=== PATIENT | male | born 1970 | race Caucasian/White ===

== ENCOUNTER 2018-01-26 14:30 | Inpatient (IN) | payer MEDICARE, MEDICAID ==
[~2018-01-26] VITALS: Ht 157.5 cm; Wt 65.0 kg
[2018-01-26 15:03] LABS: APPEARANCE CLEAR (CLEAR); BILIRUBIN NEGATIVE (NEGATIVE); COLOR YELLOW (YELLOW); GLUCOSE NEGATIVE (NEGATIVE); KETONE NEGATIVE (NEGATIVE); NITRITE NEGATIVE (NEGATIVE); PROTEIN NEGATIVE (NEGATIVE); UROBILINOGEN NORMAL (NORMAL)
[2018-01-26 15:15] LABS: BASOPHILS 0.2 % (0-2); EOSINOPHILS 0.8 % (0-7); HEMOGLOBIN 12.4 g/dL (13.5-17.5); IMMATURE GRANULOCYTES 0.2 % (0-5); LYMPHOCYTES 17.1 % (15-50); MCH 33.6 pg (26.0-34.0); MCHC 34.4 g/dL (31.0-37.0); MCV 97.6 fL (80.0-100.0); MEAN PLATELET VOLUME 9.7 fL (7.4-10.4); MONOCYTES 11.9 % (2-11); NEUTROPHILS 69.8 % (40-80); PLATELET COUNT 236 10x3/uL (130-400); RBC 3.69 10x6/uL (4.20-6.10); RDW 12.3 % (11.5-14.5)
[2018-01-26 15:51] LABS: ALBUMIN 3.4 g/dL (3.4-5.0); BILIRUBIN - TOTAL 0.26 mg/dL (0.2-1.3); CALCIUM 8.9 mg/dL (8.5-10.1); CREATININE - SERUM 1.4 mg/dL (0.6-1.3); PROTEIN - SERUM 6.5 g/dL (6.4-8.2)
[2018-01-26 22:40] VITALS: BP 125/73
[2018-01-27 03:16] VITALS: BP 125/73; BMI 26.2
[2018-01-27] MEDS ORDERED: IBUPROFEN800 MG PO (03:22)
[2018-01-27 03:53] VITALS: BP 115/61
[2018-01-27 05:53] LABS: BASOPHILS 0.2 % (0-2); EOSINOPHILS 1.1 % (0-7); HEMATOCRIT 36.8 % (42.0-54.0); HEMOGLOBIN 12.8 g/dL (13.5-17.5); IMMATURE GRANULOCYTES 0.2 % (0-5); MCH 33.8 pg (26.0-34.0); MCHC 34.8 g/dL (31.0-37.0); MCV 97.1 fL (80.0-100.0); MONOCYTES 13.7 % (2-11); NEUTROPHILS 61.8 % (40-80); PLATELET COUNT 239 10x3/uL (130-400); RBC 3.79 10x6/uL (4.20-6.10); RDW 12.6 % (11.5-14.5); WBC 5.6 10x3/uL (4.8-10.8)
[2018-01-27 06:05] LABS: CALC OSMOLALITY 282 mosm/kg (275-300); CARBON DIOXIDE 27.6 mmol/L (21.0-32.0); CHLORIDE - SERUM 104 mmol/L (98-107); GLUCOSE 112 mg/dL (74-106); POTASSIUM - SERUM 3.9 mmol/L (3.5-5.1); SODIUM 141 mmol/L (136-145); UREA NITROGEN 14 mg/dL (7-18)
[2018-01-27 06:08] LABS: CREATININE - SERUM 0.9 mg/dL (0.6-1.3); eGFR NON AFRICAN AMERICAN > 90 mL/min (90-120)
[2018-01-27 08:23] VITALS: BP 120/67
[2018-01-27 12:09] VITALS: BP 120/72
[2018-01-27 14:41] VITALS: Ht 157.5 cm; Wt 65.0 kg
[2018-01-27 16:49] VITALS: BP 125/71
[2018-01-27 20:20] VITALS: BP 117/72
[2018-01-28 01:02] VITALS: BP 124/74
[2018-01-28 04:22] VITALS: BP 125/72
[2018-01-28 07:00] VITALS: BP 115/71
[2018-01-28 07:15] LABS: BASOPHILS 0.3 % (0-2); EOSINOPHILS 2.1 % (0-7); HEMATOCRIT 37.6 % (42.0-54.0); IMMATURE GRANULOCYTES 0.3 % (0-5); MCH 33.5 pg (26.0-34.0); MCHC 34.6 g/dL (31.0-37.0); MCV 96.9 fL (80.0-100.0); MEAN PLATELET VOLUME 9.7 fL (7.4-10.4); NEUTROPHILS 61.3 % (40-80); PLATELET COUNT 267 10x3/uL (130-400); RBC 3.88 10x6/uL (4.20-6.10); RDW 12.4 % (11.5-14.5); WBC 6.3 10x3/uL (4.8-10.8)
[2018-01-28 07:43] LABS: CALC OSMOLALITY 281 mosm/kg (275-300); CALCIUM 9.1 mg/dL (8.5-10.1); CARBON DIOXIDE 28.1 mmol/L (21.0-32.0); CHLORIDE - SERUM 104 mmol/L (98-107); CREATININE - SERUM 0.8 mg/dL (0.6-1.3); GLUCOSE 108 mg/dL (74-106); POTASSIUM - SERUM 4.1 mmol/L (3.5-5.1); SODIUM 140 mmol/L (136-145); UREA NITROGEN 17 mg/dL (7-18); VANCOMYCIN - TROUGH 6.9 ug/mL (10.0-20.0); eGFR NON AFRICAN AMERICAN > 90 mL/min (90-120)
[2018-01-28 12:25] VITALS: BP 124/67
[2018-01-28 17:41] VITALS: BP 110/68
[2018-01-28 20:53] VITALS: BP 125/67
[2018-01-29 01:13] VITALS: BP 134/68
[2018-01-29 04:45] VITALS: BP 101/54
[2018-01-29 05:34] LABS: BASOPHILS 0.5 % (0-2); EOSINOPHILS 3.1 % (0-7); HEMATOCRIT 38.9 % (42.0-54.0); HEMOGLOBIN 13.4 g/dL (13.5-17.5); IMMATURE GRANULOCYTES 0.3 % (0-5); LYMPHOCYTES 26.5 % (15-50); MCH 33.6 pg (26.0-34.0); MCHC 34.4 g/dL (31.0-37.0); MCV 97.5 fL (80.0-100.0); MEAN PLATELET VOLUME 9.6 fL (7.4-10.4); MONOCYTES 8.3 % (2-11); NEUTROPHILS 61.3 % (40-80); PLATELET COUNT 283 10x3/uL (130-400); RBC 3.99 10x6/uL (4.20-6.10); RDW 12.3 % (11.5-14.5); WBC 6.1 10x3/uL (4.8-10.8)
[2018-01-29 05:50] LABS: CALC OSMOLALITY 282 mosm/kg (275-300); CHLORIDE - SERUM 105 mmol/L (98-107); CREATININE - SERUM 0.9 mg/dL (0.6-1.3); GLUCOSE 112 mg/dL (74-106); SODIUM 141 mmol/L (136-145); UREA NITROGEN 15 mg/dL (7-18); eGFR NON AFRICAN AMERICAN > 90 mL/min (90-120)
[2018-01-29] MEDS ORDERED: SILVADENE CREAM50 GM TOPICAL (07:27)
[2018-01-29 07:43] VITALS: BP 120/73
== END 2018-01-29 11:23 | disposition home or self-care (01) | DRG 918 ==
LOC: D.ER 14:30 → D.MS 17:50 → D.EDHOLD 17:50 → D.MS 18:55
PROVIDERS: Family Medicine
DX: T54.91XA Toxic effect of unspecified corrosive substance, accidental (unintentional), initial encounter (principal); L03.116 Cellulitis of left lower limb; T25.422A Corrosion of unspecified degree of left foot, initial encounter; T25.421A Corrosion of unspecified degree of right foot, initial encounter; R20.8 Other disturbances of skin sensation; F17.200 Nicotine dependence, unspecified, uncomplicated; J44.9 Chronic obstructive pulmonary disease, unspecified; K75.9 Inflammatory liver disease, unspecified; F41.9 Anxiety disorder, unspecified; S91.302A Unspecified open wound, left foot, initial encounter; S91.301A Unspecified open wound, right foot, initial encounter

== ENCOUNTER 2019-03-16 14:25 | Emergency (ER) | payer MEDICARE, MEDICAID ==
[~2019-03-16] VITALS: Ht 157.5 cm; Wt 63.6 kg
[~2019-03-16 14:25] MED LIST: IBUPROFEN800 MG PO; SILVADENE CREAM50 GM TOPICAL
[2019-03-16 14:49] VITALS: BP 124/73; Ht 157.5 cm; Wt 63.6 kg
[2019-03-16 15:27] LABS: BASOPHILS 0.3 % (0-2); EOSINOPHILS 1.6 % (0-7); HEMATOCRIT 38.9 % (42.0-54.0); HEMOGLOBIN 13.5 g/dL (13.5-17.5); IMMATURE GRANULOCYTES 0.2 % (0-5); LYMPHOCYTES 33.5 % (15-50); MCH 34.1 pg (26.0-34.0); MCHC 34.7 g/dL (31.0-37.0); MCV 98.2 fL (80.0-100.0); MEAN PLATELET VOLUME 9.6 fL (7.4-10.4); MONOCYTES 8.2 % (2-11); NEUTROPHILS 56.2 % (40-80); PLATELET COUNT 228 10x3/uL (130-400); RBC 3.96 10x6/uL (4.20-6.10); RDW 11.8 % (11.5-14.5); WBC 6.3 10x3/uL (4.8-10.8)
[2019-03-16 15:43] LABS: ALBUMIN 4.1 g/dL (3.4-5.0); ALKALINE PHOSPHATASE 50 U/L (46-116); ALT (SGPT) 31 U/L (10-68); CALC OSMOLALITY 281 mosm/kg (275-300); CALCIUM 8.9 mg/dL (8.5-10.1); CARBON DIOXIDE 29.9 mmol/L (21.0-32.0); CHLORIDE - SERUM 103 mmol/L (98-107); CREATININE - SERUM 0.9 mg/dL (0.6-1.3); GLUCOSE 79 mg/dL (74-106); POTASSIUM - SERUM 3.8 mmol/L (3.5-5.1); PROTEIN - SERUM 7.3 g/dL (6.4-8.2); SODIUM 141 mmol/L (136-145); UREA NITROGEN 19 mg/dL (7-18); eGFR NON AFRICAN AMERICAN > 90 mL/min (90-120)
[2019-03-16 15:46] LABS: APTT 25.3 SECONDS (22.8-39.4); INR 0.99 (0.85-1.17); PROTIME 12.6 SECONDS (11.6-15.0)
== END 2019-03-16 16:36 | disposition home or self-care (01) ==
LOC: D.ER 14:25
PROVIDERS: Family Medicine
DX: K92.2 Gastrointestinal hemorrhage, unspecified (principal)

== ENCOUNTER 2019-03-25 09:20 | Inpatient (IN) | payer MEDICARE, MEDICAID ==
[2019-03-25] VITALS (8 sets, daily range): BP systolic 111–149; BP diastolic 73–95; BMI 26.4
[~2019-03-25] VITALS: Ht 157.5 cm; Wt 71.4 kg
--- NOTE | ~2019-03-25 | HEMODYNAMI ---
PATIENT:JULES GATICA MEDICAL RECORD: [id number] : [birth year] LOCATION:[facility] D.2118 ADMISSION DATE: 03/25/19 Generatedon:03/26/201913:27 Patient name: JULES GATICA Patient #: [id number] SSN: : 1970 Date of study: 03/26/2019 Page: Of Hemodynamic Procedure Report Patient Data Patient Demographics Procedure consent was obtained First Name: JULES Gender: Male Last Name: GAVI : 1970 [facility] Initial: STEVEN Age: 49 year(s) Patient #: [id number] Race: Unknown Additional ID: [id number] Contact details Address: [address] [place] [address] State: [place] City: [place] Zip code: [address] Past Medical History Allergies Allergen Reaction Date Comments Reported Other allergy 03/26/2019 iodine Admission Admission Data Admission Date: 03/25/2019 Admission Time: 14:07 Room #: D.2118 Height (in.): 61.81 BSA: 1.67 (m2) Height (cm.): 157 BMI: 26.78 (kg/m2) Weight (lbs.): 145.51 Weight (kg.): 66 Lab Results Lab Result Date: 03/26/2019 Lab Result Time: 0:00 Biochemistry Name Units Result Min Max BUN mg/dl 12 --(-*--)-- 7 18 Creatinine mg/dl 1 --(--*-)-- 0.6 1.3 Troponin l ng/ml 0.113 --(----)-* 0 0.06 CBC Name Units Result Min Max Hemoglobin g/dl 15.2 --(-*--)-- 13.5 17.5 Coagulation Name Units Result Min Max INR units 0.92 --(*---)-- 0.85 1.17 PT sec 11.9 --(*---)-- 11.6 15 Procedure Procedure Types Cath Procedure Diagnostic Procedure C [facility] w/Coronaries Procedure Description Procedure Date Procedure Date: 03/26/2019 Procedure Start Time: 13:20 Procedure End Time: 13:26 Procedure Staff Name Function Christoph Kim MD Performing Physician Casi Carter RN Nurse Mago Simon RT Scrub Flora Shearer RT Monitor Procedure Data Cath Procedure Fluoroscopy Diagnostic fluoroscopy Total fluoroscopy Time: 1.2 time: 1.2 min min Diagnostic fluoroscopy Total fluoroscopy dose: 199 dose: 199 mGy mGy Contrast Material Contrast Material Type Amount (ml) Isovue 300 37 Entry Location Entry Primary Successful Side Size Upsize Upsize Entry Closure Carbajal ccessful Closure Location (Fr) 1 (Fr) 2 (Fr) Remarks Device Remarks Radial Right 6 Fr Mechanical artery Short Compression Estimated blood loss: 10 ml Diagnostic catheters Device Type Used For End Catheter Placement DIAGNOSTIC [place] 110cm 5 Procedure Fr catheter ([id number]) Procedure Complications No complications Procedure Medications Medication Administration Route Dosage 0.9% NaCl I.V. 100 ml/hr Oxygen etCO2 Nasal cannula 2 l/min Lidocaine 2% added to field 20 Heparin Flush Bag added to field 2 bags (1000units/500ml NS) Radial Cocktail added to field 1 syringe (Verapamil 2mg/Nitro 400mcg/Heparin 1500units) Versed I.V. 2 mg Fentanyl I.V. 50 mcg Versed I.V. 2 mg Fentanyl I.V. 50 mcg Hemodynamics Rest BSA: 1.67 (m2) HGB: 15.2 (g/dl) O2 Consumption: Estimated: 201.2 (ml/min) O2 Con sumption indexed: Estimated:120.48 (ml/min/m) Heart Rate: 72 (bpm) Snapshots Pre Cath Intra NCS Post Cath Vital Signs Time Heart Resp SPO2 etCO2 NIBP Rhythm Pain Sedation Rate (ipm) (%) (mmHg) (mmHg) Status Level (bpm) 12:55:35 71 17 99 24 114/74(95) NSR 0 (11) 10(A) , No pain 12:59:42 74 14 100 31.4 111/70(83) NSR 0 (11) 10(A) , No pain 13:03:52 75 16 98 29 103/63(83) NSR 0 (11) 10(A) , No pain 13:07:54 71 18 97 29 107/74(84) NSR 0 (11) 10(A) , No pain 13:12:00 68 18 97 19.4 105/63(77) NSR 0 (11) 10(A) , No pain 13:16:03 77 16 96 26 111/70(82) NSR 0 (11) 10(A) , No pain 13:20:09 73 17 96 23.2 111/68(85) NSR 0 (11) 10(A) , No pain 13:24:17 73 19 95 36.7 93/57(76) NSR 0 (11) 10(A) , No pain Medications Time Medication Route Dose Verified Delivered Reason Notes E ffectiveness by by 12:57:31 0.9% NaCl I.V. 100 Christoph Casi used for ml/hr Julio Carter dope heater 12:57:39 Oxygen etCO2 2 l/min Christoph Casi used for Nasal Julio Carter procedure cannula RN 12:57:44 Lidocaine 2% added 20ml Christoph Christoph for local to vial Julio Kim MD anesthetic field 12:57:48 Heparin Flush added 2 bags Christoph Christoph used for Bag to Julio Kim MD procedure (1000units/500ml field NS) 12:57:53 Radial Cocktail added 1 Christoph Christoph used for (Verapamil to syringe Julio Kim MD procedure 2mg/Nitro field 400mcg/Heparin 1500units) 13:18:25 Versed I.V. 2 mg Christoph Casi for Julio Carter sedation RN 13:18:31 Fentanyl I.V. 50 mcg Christoph Casi for Julio Carter sedation RN 13:23:09 Versed I.V. 2 mg Christoph Casi for Julio Carter sedation RN 13:23:17 Fentanyl I.V. 50 mcg Christoph Casi for Julio Carter sedation community center worker Log Time Note 12:41:41 Diagnostic Cath Status : Elective 12:42:45 Flora Shearer RT(R) sent for patient. Start room use. 12:42:46 Time tracking: Regular hours (M-F 7:00 - 5:00) 12:42:50 Plan of Care:Hemodynamics will remain stable., Cardiac rhythm will remain stable., Comfort level will be maintained., Respiratory function will remain adequate., Patient/ family verbilizes understanding of procedure., Procedure tolerated without complication., Recovers from procedure without complications.. 12:49:56 Patient received from PCU to CCL 2 Alert and oriented. Tansferred to table in Supine position. 12:49:57 Warm blankets applied, and lacho hugger turned on for patient comfort. 12:49:58 Correct patient and procedure confirmed by team. 12:50:00 Signed procedure consent form obtained from patient. 12:50:02 ECG and BP/O2 sat monitors applied to patient. 12:50:21 H&P Date Dictated: 03/26/2019 Within 30 days and on chart.. 12:50:23 Pre-procedure instructions explained to patient. 12:50:25 Family in waiting room. 12:50:27 Patient NPO since Midnight. 12:50:46 Patient allergic to Other allergyiodine 12:50:49 Is the patient allergic to Iodine/contrast media? Yes. 12:50:50 Was the patient premedicated? Yes 12:50:53 Is patient on blood thinner?No 12:54:34 Vital chart was started 12:57:31 0.9% NaCl 100 ml/hr I.V. was administered by Casi Carter RN; used for procedure; 12:57:39 Oxygen 2 l/min etCO2 Nasal cannula was administered by Casi Carter RN; used for procedure; 12:57:44 Lidocaine 2% 20ml vial added to field was administered by Christoph Kim MD; for local anesthetic; 12:57:48 Heparin Flush Bag (1000units/500ml NS) 2 bags added to field was administered by Christoph Kim MD; used for procedure; 12:57:53 Radial Cocktail (Verapamil 2mg/Nitro 400mcg/Heparin 1500units) 1 syringe added to field was administered by Christoph Kim MD; used for procedure; 12:58:43 ACC The patient was administered the following blood thiners within the last 24 hours: None 12:58:46 Patient diabetic? No. 12:58:52 Snore? Yes 12:58:54 Sleep apnea? No 12:58:59 Airway obstruction? Yes COPD 12:59:07 Dentures? Yes intight' 12:59:12 Patient pain scale 0/10 ?. 12:59:20 IV patent on arrival in left antecubital with 0.9% NaCl at [facility]. 12:59:23 Lab results completed and on chart. 12:59:27 Right Radial & Right Groin area was prepped with chlora-prep and draped in sterile fashion 12:59:28 Alarms reviewed by R. N. 12:59:29 Sharps counted by scrub and verified by R.N. 12:59:31 Physician paged 13:01:20 Use device set Radial Dx or PCI 13:01:21 ACIST Syringe (55092) opened to sterile field. 13:01:22 Medline Cath Pack ([id number]) opened to sterile field. 13:01:22 Bag Decanter (2002S) opened to sterile field. 13:01:23 ACIST Hand Control (70336) opened to sterile field. 13:01:23 ACIST Manifold (91647) opened to sterile field. 13:01:24 Tegaderm 4 x 4 (1626W) opened to sterile field. 13:01:24 MBrace Wrist Support ([id number]) opened to sterile field. 13:01:25 NEEDLE Cook 21G 4cm Radial (V50056) opened to sterile field. 13:01:30 SHEATH 6FR RAIN (4319964) opened to sterile field. 13:04:31 Patient Height : 61.81 inches 13:04:35 Patient Weight : 145.51 lbs 13:06:00 Lab Result : Troponin l 0.113 ng/ml 13:06:00 Lab Result : Creatinine 1 mg/dl 13:06:00 Lab Result : BUN 12 mg/dl 13:06:00 Lab Result : INR 0.92 units 13:06:00 Lab Result : PT 11.9 sec 13:06:00 Lab Result : Hemoglobin 15.2 g/dl 13:06:46 Baseline sample Acquired. 13:06:51 Full Disclosure recording started 13:10:04 Zero performed for pressure channel P1 13:14:11 Physician arrived 13:17:17 --------ALL STOP TIME OUT------ 13:17:19 Final Timeout: patient, procedure, and site verified with staff and physician. All members of the team are in agreement. 13:17:21 Right groin site verified by team. 13:17:25 Right Radial site verified by team. 13:17:30 Fire Safety Assessment: A--An alcohol-based skin anteseptic being used preoperatively., C--Open oxygen or nitrous oxide is being used., D--An ESU, laser, or fiber-optic light is being used. 13:17:51 1) 90+ Normal kidney functon but urine findings or structural abnormalities or genetic trait point to kidney disease. 13:17:58 Sedation plan: IV Moderate Sedation Medication:Versed, Fentanyl 13:18:25 Versed 2 mg I.V. was administered by Casi Carter RN; for sedation; :18:31 Fentanyl 50 mcg I.V. was administered by Casi Carter RN; for sedation; 13:20:03 Procedure started. 13:20:15 Local anesthetic to right radial artery with Lidocaine 2% by Christoph Kim MD.INITIAL ACCESS ONLY 13::28 A 6 Fr Short sheath was inserted into the Right Radial artery 13::52 A DIAGNOSTIC [place] 110cm 5 Fr catheter ([id number]) was advanced over the wire and used for Procedure. 13:22:05 LV angiography performed. 13:22:50 EF : 60 % 13:23:00 LCA angiography performed. 13:23:09 Versed 2 mg I.V. was administered by Casi Carter RN; for sedation; 13:23:17 Fentanyl 50 mcg I.V. was administered by Casi Carter RN; for sedation; 13:23:36 RCA angiography performed. 13:24:37 TR BAND Standard ([id number]) opened to sterile field. 13:24:41 Catheter removed. 13:25:00 Sheath removed intact; hemostasis achieved with Mechanical Compression to the Right Radial artery. 13:25:04 Procedure ended.(Physican Out) 13:25:17 Fluoroscopy time 01.20 minutes. 13:25:22 Fluoroscopy dose: 199 mGy 13:25:22 Flurop Dose total: 199 13:25:26 Contrast amount:Isovue 300 37ml. 13:25:28 Sharps counted by scrub and verified by R.N. 13:25:31 TR band inflated with 10cc of air. 13:25:32 Insertion/operative site no bleeding no hematoma. 13:25:34 Post Procedure Pulses reassessed and unchanged 13:25:43 Post-procedure physical assessment completed. ASA score P 2 - A patient with mild systemic disease as per Christoph Kim MD. 13:25:45 Post procedure rhythm: unchanged. 13:25:48 Estimated blood loss: 10 ml 13:25:50 Post procedure instruction explained to patient.Patient verbalizes understanding. 13:26:07 Procedure and supply charges have been captured, reviewed, submitted and are correct. 13:26:24 Procedure Complication : No complications 13:26:27 Vital chart was stopped 13:26:27 See physician's report for complete and final results. 13:26:29 Report given to Pre/Post Procedure Room. 13:26:42 Patient transfered to Pre/Post Procedure Room with Bed. 13:26:48 Procedure ended. 13:26:48 Full Disclosure recording stopped 13:26:51 End room use (Document Last) Device Usage Item Name Manufacture Quantity Catalog Hospital Part Current Minima l Lot# / Number Charge Number Stock Stock Serial# Code ACIST Acist 1 13589 320367 814677 237094 20 Syringe Medical (52103) Systems Inc Medline Medline 1 [id number] 813960 68515 733589 5 Cath Pack ([id number]) Bag Microtek 1 908695 86666 099612 5 Decanter Medical Inc. () ACIST Hand Acist 1 83741 916968 716704 940171 5 Control Medical (12949) Systems Inc ACIST Acist 1 69723 780882 738257 772997 5 Manifold Medical (73069) Systems Inc Tegaderm 4 3M 1 1626W 237180 434859 696328 5 x 4 (1626W) MBrace Advanced 1 140-0250-00 355988 05794 116892 5 Wrist Vascular Support Dynamics ([id number]) NEEDLE Cook Cook Medical 1 [id number] 351930 754919 719303 5 21G 4cm Radial (P73446) SHEATH 6FR Cardinal 1 8111499 549441 1862873 998110 5 [facility] (6220992) DIAGNOSTIC Terumo 1 40-1759 725680 381911 709978 5 [place] 110cm 5 Fr catheter (441960) TR BAND Terumo 1 PCU44-RVS 548870 045721 022820 40 Standard ([id number]) Signature Audit [place] Stage Time Signature Unsigned Intra-Procedure 03/26/2019 Flora Shearer 1:27:41 PM RT(R) Signatures Performing Physician : Signature : Christoph Tauth MD Date : Time : Nurse : Casi Raul RN Signature : Date : Time : Monitor : Flora Manfred Signature : RT Date : Time : [place] [address] [place] [address]
[2019-03-25] MEDS ORDERED: [UNRECOGNIZED DRUG - REMARK] (09:25)
[2019-03-25] MEDS ORDERED: [UNRECOGNIZED DRUG - REMARK] (09:26)
[2019-03-25 09:46] LABS: BASOPHILS 0.3 % (0-2); EOSINOPHILS 0.9 % (0-7); HEMOGLOBIN 15.2 g/dL (13.5-17.5); IMMATURE GRANULOCYTES 0.2 % (0-5); LYMPHOCYTES 34.2 % (15-50); MCH 34.5 pg (26.0-34.0); MCHC 35.3 g/dL (31.0-37.0); MCV 97.7 fL (80.0-100.0); MEAN PLATELET VOLUME 9.4 fL (7.4-10.4); NEUTROPHILS 52.4 % (40-80); PLATELET COUNT 193 10x3/uL (130-400); WBC 5.8 10x3/uL (4.8-10.8)
[2019-03-25 09:47] LABS: APPEARANCE CLEAR (CLEAR); BILIRUBIN NEGATIVE (NEGATIVE); COLOR YELLOW (YELLOW); GLUCOSE NEGATIVE (NEGATIVE); KETONE NEGATIVE (NEGATIVE); NITRITE NEGATIVE (NEGATIVE); PROTEIN NEGATIVE (NEGATIVE); SPECIFIC GRAVITY 1.015 (1.005-1.020); UROBILINOGEN NORMAL (NORMAL)
--- NOTE | 2019-03-25 09:51 | NUR ---
CLEAN CATCH URINE COLLECTED ET SENT TO LAB.
[2019-03-25 10:01] LABS: ALBUMIN 4.2 g/dL (3.4-5.0); ALKALINE PHOSPHATASE 73 U/L (46-116); ALT (SGPT) 27 U/L (10-68); BILIRUBIN - TOTAL 0.66 mg/dL (0.2-1.3); CALC OSMOLALITY 274 mosm/kg (275-300); CARBON DIOXIDE 26.9 mmol/L (21.0-32.0); CHLORIDE - SERUM 101 mmol/L (98-107); GLUCOSE 109 mg/dL (74-106); POTASSIUM - SERUM 3.9 mmol/L (3.5-5.1); PROTEIN - SERUM 7.7 g/dL (6.4-8.2); SODIUM 137 mmol/L (136-145); UREA NITROGEN 12 mg/dL (7-18); eGFR NON AFRICAN AMERICAN 84 mL/min (90-120)
[2019-03-25 10:13] LABS: AMYLASE - SERUM 28 U/L (25-115); LIPASE 95 U/L (73-393)
[2019-03-25 10:17] LABS: TROPONIN-I 0.141 ng/mL (0.000-0.060)
[2019-03-25 11:01] LABS: APTT 25.9 SECONDS (22.8-39.4); INR 0.92 (0.85-1.17); PROTIME 11.9 SECONDS (11.6-15.0)
[2019-03-25 11:12] LABS: CKMB 1.1 U/L (0.0-3.6); CREATINE KINASE 70 UL (21-232)
--- NOTE | 2019-03-25 11:27 | NUR ---
ART CLASS MODEL AT
--- NOTE | 2019-03-25 12:06 | NUR ---
TO CT VIA WC WITH FORENSIC SCIENTIST
[2019-03-25 14:25] LABS: CREATINE KINASE 61 UL (21-232)
[2019-03-25 14:26] LABS: TROPONIN-I 0.133 ng/mL (0.000-0.060)
--- NOTE | 2019-03-25 14:40 | NUR ---
REPORT CALLED TO SHAYY HILL BY SBAR FORMAT
--- NOTE | 2019-03-25 14:49 | MORECARE ---
CASE MANAGEMENT DISCHARGE SUMMARY PATIENT: JULES GATICA UNIT: [id number] ADM DATE: 03/25/19 AGE: 49 : [birth year] SEX: M ROOM/BED: D.3508 AUTHOR: AMBIKA,DOC PHYSICIAN: REFERRING PHYSICIAN: EMILY GUTIÉRREZ MD DATE OF SERVICE: 03/25/19 Discharge Plan Patient Name: JULES GATICA Facility: [facility]:[place] : 1970 Planned Disposition: Anticipated Discharge Date: 03/27/19 Discharge Date: Expected LOS: 2 Initial Reviewer: [email or web address] Initial Review Date: 03/25/2019 Generated: 03/25/19 3:48 pm DCP- Discharge Planning Updated by [email or web address]: Jennifer Caldwell on 03/25/19 1:[address] Patient Name: JULES GATICA Admission Status: ER Accout number: [id number] Admission Date: 03-25-2019 : 1970 Admission Diagnosis: Attending: EMILY GUTIÉRREZ Current LOS: 1 Anticipated DC Date: 03-27-2019 Planned Disposition: Primary Insurance: [facility] [employer] [employer]UTIONS Discharge Planning Comments: CM met with patient to complete initial dc planning assessment. CM educated patient on the CM role and verbal consent given by patient to complete assessment. CM verified patient's address, phone number, and emergency contact phone numbers. Patient lives at home with his significant other. At discharge patient plans to return home and feels this is a safe discharge. CM discussed availability of home health, rehab services, and medical equipment. Patient denied known discharge needs at this time. Patient reports his sister in law will transport him home at time of discharge. CM will continue to follow and will assist as needed with dc plans/needs. Pyrotechnist: Jennifer Caldwell RN, [facility] DCPIA - Discharge Planning Initial Assessment Updated by [email or web address]: Jennifer Caldwell on 03/25/19 2:44 pm * Is the patient Alert and Oriented? Yes * How many steps to enter\exit or inside your home? * PCP Dr. Urban * Pharmacy [facility] * Preadmission Environment Home with Family * ADLs Independent * Equipment None * List name and contact numbers for known caregivers / representatives who currently or will assist patient after discharge: Marta Gaitan - sister - [phone] Spencer Villa - brother - [phone] * Verbal permission to speak to the caregivers and representatives has been obtained from the patient. Yes * Community resources currently utilized None * Additional services required to return to the preadmission environment? No * Can the patient safely return to the preadmission environment? Yes * Has this patient been hospitalized within the prior 30 days at any hospital? No Patient Name: JULES GATICA Page [id number] at 1449 All edits/amendments must be made on the electronic document DICTATION DATE: 03/25/191447 MARKETING OPERATIONS SPECIALIST: HERBERT 03/25/191447 RPT#: [id number] DC DATE: STATUS: ADM IN [facility] [address] [place] [address] END OF REPORT
--- NOTE | 2019-03-25 15:03 | NUR ---
[facility] IN[facility]USION STOPPED @ 1503
--- NOTE | 2019-03-25 15:03 | NUR ---
TRANSPORTED TO ROOM #2118 VIA W/C [facility]
--- NOTE | 2019-03-25 15:12 | NUR ---
TRANSFER FROM ICU BY W/C. OREINTED TO ROOM. CALL LIGHT IN REACH. WILL CONT. PLAN OF CARE.
[2019-03-25] MEDS ORDERED: CARAFATE1 G PO (15:16)
[2019-03-25] MEDS ORDERED: NEXIUM40 MG PO (15:17)
--- NOTE | 2019-03-25 15:47 | NUR ---
CONSENTS SIGNED FOR [facility].
[2019-03-25 20:09] LABS: CKMB 0.8 U/L (0.0-3.6); CREATINE KINASE 56 UL (21-232); TROPONIN-I 0.056 ng/mL (0.000-0.060)
[2019-03-26] VITALS: BP 115/75
[2019-03-26 02:19] LABS: CKMB 0.8 U/L (0.0-3.6); CREATINE KINASE 55 UL (21-232); TROPONIN-I 0.043 ng/mL (0.000-0.060)
[2019-03-26 04:00] VITALS: BP 117/78
[2019-03-26 06:02] LABS: BASOPHILS 0.2 % (0-2); EOSINOPHILS 0.6 % (0-7); HEMATOCRIT 39.4 % (42.0-54.0); HEMOGLOBIN 13.8 g/dL (13.5-17.5); IMMATURE GRANULOCYTES 0.2 % (0-5); LYMPHOCYTES 33.5 % (15-50); MCH 33.6 pg (26.0-34.0); MCV 95.9 fL (80.0-100.0); MEAN PLATELET VOLUME 9.7 fL (7.4-10.4); MONOCYTES 13.2 % (2-11); NEUTROPHILS 52.3 % (40-80); PLATELET COUNT 198 10x3/uL (130-400); RBC 4.11 10x6/uL (4.20-6.10)
[2019-03-26 06:19] LABS: CALC OSMOLALITY 277 mosm/kg (275-300); CALCIUM 8.5 mg/dL (8.5-10.1); CARBON DIOXIDE 28.4 mmol/L (21.0-32.0); CHLORIDE - SERUM 103 mmol/L (98-107); CREATININE - SERUM 0.9 mg/dL (0.6-1.3); GLUCOSE 106 mg/dL (74-106); MAGNESIUM - SERUM 1.9 mg/dL (1.8-2.4); PHOSPHOROUS 3.6 mg/dL (2.5-4.9); POTASSIUM - SERUM 3.6 mmol/L (3.5-5.1); SODIUM 140 mmol/L (136-145); UREA NITROGEN 10 mg/dL (7-18); eGFR NON AFRICAN AMERICAN > 90 mL/min (90-120)
[2019-03-26 08:22] VITALS: BP 108/77
[2019-03-26 12:29] VITALS: Ht 157.5 cm; Wt 71.4 kg
--- NOTE | 2019-03-26 12:52 | NUR ---
PRE-OPS GIVEN. TO INCLUSION MANAGER BY BED.
--- NOTE | 2019-03-26 13:51 | NUR ---
BACK FROM COMPUTER NETWORKER. VS WNL. RIGHT WRIST STABLE WITH TR BAND INTACT. WILL MONITOR.
--- NOTE | 2019-03-26 16:38 | NUR ---
TR BAND DCD WITHOUT BLEEDING OR HEMATOMA NOTED.
[2019-03-26 17:31] VITALS: BP 98/56
--- NOTE | 2019-03-26 19:20 | NUR ---
RESUMING PATIENT CARE. PATIENTIS ALERT AND ORIENTED. RESPIRATINS ARE EVEN AND UNLABORED. NO S/S OF DISTRESS. NO C/O PAIN. NEEDS MET. CALL LIGHT WITHIN REACH. WILL CPOC.
[2019-03-26 20:00] VITALS: BP 101/65
[2019-03-27] VITALS (8 sets, daily range): BP systolic 101–117; BP diastolic 58–76
[2019-03-27 05:31] LABS: BASOPHILS 0.3 % (0-2); EOSINOPHILS 0.9 % (0-7); HEMATOCRIT 37.4 % (42.0-54.0); HEMOGLOBIN 12.8 g/dL (13.5-17.5); IMMATURE GRANULOCYTES 0.2 % (0-5); MCH 33.5 pg (26.0-34.0); MCHC 34.2 g/dL (31.0-37.0); MEAN PLATELET VOLUME 9.8 fL (7.4-10.4); MONOCYTES 8.2 % (2-11); NEUTROPHILS 55.4 % (40-80); PLATELET COUNT 195 10x3/uL (130-400); RBC 3.82 10x6/uL (4.20-6.10); RDW 12.3 % (11.5-14.5)
[2019-03-27 05:36] LABS: MCV 97.9 fL (80.0-100.0); WBC 6.5 10x3/uL (4.8-10.8)
[2019-03-27 05:43] LABS: CALC OSMOLALITY 286 mosm/kg (275-300); CALCIUM 8.2 mg/dL (8.5-10.1); CARBON DIOXIDE 28.9 mmol/L (21.0-32.0); CHLORIDE - SERUM 107 mmol/L (98-107); GLUCOSE 96 mg/dL (74-106); MAGNESIUM - SERUM 2.1 mg/dL (1.8-2.4); PHOSPHOROUS 3.5 mg/dL (2.5-4.9); POTASSIUM - SERUM 3.5 mmol/L (3.5-5.1); SODIUM 144 mmol/L (136-145); eGFR NON AFRICAN AMERICAN 84 mL/min (90-120)
[2019-03-27 05:45] LABS: UREA NITROGEN 13 mg/dL (7-18)
--- NOTE | 2019-03-27 08:09 | NUR ---
TELEMETRY SR. UP AMBULATING HALLWAY. GAIT STEADY. WILL CONT. PLAN OF CARE.
--- NOTE | 2019-03-27 12:58 | NUR ---
IV STARTED BY LUCY RYDER WITH 22 GAUGE CATH BY LUCY RYDER. URINE SPECIMEN COLLECTED AND TAKEN TO LAB. WILL MONITOR.
--- NOTE | 2019-03-27 13:43 | NUR ---
ORTHOSTATIC B/P 101/58 72 LYING, 101/68 74 SITTING, AND 109/67 73 STANDING. WILL MONITOR.
[2019-03-27 14:16] LABS: UDS - AMPHET NEGATIVE QUAL (NEGATIVE); UDS - BARB NEGATIVE QUAL (NEGATIVE); UDS - BENZO POSITIVE QUAL (NEGATIVE); UDS - COCAINE NEGATIVE QUAL (NEGATIVE); UDS - OPIATE NEGATIVE QUAL (NEGATIVE); UDS - PCP NEGATIVE QUAL (NEGATIVE); UDS - THC POSITIVE QUAL (NEGATIVE)
--- NOTE | 2019-03-27 16:51 | CN ---
PATIENT NAME:JULES MILLER MEDICAL RECORD: [id number] : 68 LOCATION:D. D.2118 ADMIT DATE: 03/25/19 ACCOUNT: [id number] CONSULTING PHYSICIAN: CHARLOTTE SPENCE MD REFERRING PHYSICIAN: EMILY GUTIÉRREZ MD DATE OF CONSULTATION: 03/25/2019 DIAGNOSES: 1. Non-Q-wave myocardial infarction. 2. Cardiomyopathy. 3. Coronary artery disease. 4. Family history of coronary artery disease. 5. Smoking history. 6. Gastroesophageal reflux disease. 7. Recent gastrointestinal bleed. HISTORY OF PRESENT ILLNESS: Mr. Miller presents with epigastric and lower chest discomfort. He thought that this was secondary to his GERD and gastric situation. He presented last week with a GI bleed. He does have a history of ulcer disease. He was treated medically with what appears to be Carafate and Protonix. He has not had any further bleeding. He now presents today. His troponin is positive. Echocardiogram was performed. His ejection fraction is in the 40% range. He is currently pain free. He has an IODINE ALLERGY. PHYSICAL EXAMINATION: GENERAL APPEARANCE: Well-nourished, well-developed, appears stated age. Level of distress, comfortable. PSYCHIATRIC: Mental status, alert, normal affect. Orientation, oriented to time, place and person. EYES: Lids and conjunctiva, noninjected. No discharge, no pallor. ENT: Lips, teeth, gums, normal dentition. Oropharynx, no cyanosis, no pallor. NECK: Carotid arteries, bilateral normal upstroke, no bruits, no thrills. JUGULAR VEINS: No jugular venous pressure or distention. CERVICAL LYMPH NODES: Nontender, nonenlarged. THYROID: Not enlarged. Nontender. No nodules. LUNGS: Respiratory effort, unlabored. CHEST: Normal curvature. No thoracic deformity. No chest wall tenderness. Percussion, resonant. Auscultation, clear. No wheezes, no rales, no rhonchi. CARDIOVASCULAR: Precordial exam, nondisplaced. No heaves or pericardial thrills. Rate and rhythm, regular. Heart sounds, normal S1, normal S2. No S3, no gallop, no rub. Systolic murmur, not heard. Diastolic murmur, not heard. EXTREMITIES: No cyanosis, no edema. Peripheral pulses, full and equal in all extremities, except as noted. No bruits appreciated. ABDOMEN: Soft, nondistended. Normal aorta. No bruit. Nontender. No masses. Liver, nontender, no hepatomegaly. Spleen, nontender, no splenomegaly. MUSCULOSKELETAL: No joint tenderness. No joint swelling. No erythema. NEUROLOGICAL: Normal gait, normal strength, normal tone. SKIN: Warm and dry. OVERALL IMPRESSION: It appears that he is stable from the standpoint of the GI bleed. His hemoglobin is normal and on GI directed medication he has had no further GI bleeding. Obviously, his cardiac situation is his most impending and acute at this point with a decreased ejection fraction and chest pain and non-Q-wave myocardial infarction. We will proceed with coronary angiography in a.m. if he has no further bleeding with placement of bare metal stent and CONSULT REPORT [id number] JULES MILLER duration of Plavix only being 14 days. TRANSINT:[id number] Voice Confirmation ID: [id number] DOCUMENT ID: [id number] CHARLOTTE SPENCE MD at 1651 CC: [id number] DICTATION DATE: 03/25/19 1227 SENIOR RESIDENT CARE DIRECTOR: 03/25/19 1252 ADM IN [facility] [address] [id number]
--- NOTE | 2019-03-27 16:51 | OP ---
PATIENT NAME: JULES GATICA MEDICAL RECORD: [id number] :68 LOCATION:D.M2 D.2118 ADMISSION DATE:03/25/19 SURGEON: CHARLOTTE SPENCE MD DATE OF OPERATION: 03/26/2019 PROCEDURES: 1. Left heart catheterization. 2. Selective coronary angiography. 3. Left ventriculogram. INDICATION: Elevated troponin compatible with non-Q-wave myocardial infarction. PROCEDURE IN DETAIL: After informed consent was obtained and after a detailed description of risks, benefits as well as alternative therapies, the patient elected to proceed with angiogram and heart catheterization. The right radial area was prepped and draped in normal sterile fashion. Right radial artery was cannulated via modified Seldinger technique with placement of 5-Danish sheath. All catheters exchanged through this sheath. FINDINGS: Left ventriculogram was performed in a standard 30-degree STOVER view, reveals good cardiac wall motion, ejection fraction is 60%. SELECTIVE CORONARY ANGIOGRAPHY: Left main, left anterior descending, left circumflex, right coronary artery are all smooth-walled vessels with no angiographic evidence of coronary artery disease. OVERALL IMPRESSION: 1. No angiographic evidence of coronary artery disease. 2. Normal left heart pressures. 3. Normal left ventricular systolic function. TRANSINT:[id number] Voice Confirmation ID: [id number] DOCUMENT ID: [id number] CHARLOTTE SPENCE MD at 1651 CC: [id number] DICTATION DATE: 03/26/19 1328 METAL CUT OFF SAW TENDER: 03/26/19 1334 ADM IN [place] [facility] [id number] [place] [address]
--- NOTE | 2019-03-27 16:51 | EC ---
PATIENT:JULES GATICA DATE OF SERVICE: 03/25/19 SEX: M MEDICAL RECORD: [id number] DATE OF : 68 LOCATION:D.M2 D.211 AGE OF PATIENT: 49 ADMISSION DATE: 03/25/19 REFERRING PHYSICIAN: INTERPRETING PHYSICIAN: CHARLOTTE KIM MD ECHOCARDIOGRAM REPORT ECHO CHARGES 4 ECHO COMPLETE Date: 03/25/19 CLINICAL DIAGNOSIS: ECHOCARDIOGRAPHIC MEASUREMENTS (adult normal given) AC root (d.<3.7cm) 2.9 cm LV Septum d (<1.2 cm> 1.4 cm Valve Excursion 1.5 cm LV Septum (systole) 1.7 cm Left Atria (s.<4.0cm> 2.8 cm LVPW d(<1.2cm) 1.1 cm RV (d.<2.3cm) 2.4 cm LVPW (sytole) 1.2 cm LV diastole(<5.6CM) 4.9 cm MV E-F(>70mm/sec) cm LV systole 3.5 cm LVOT Diameter 1.9 cm MV exc.(>10mm) cm Est.ejection fraction (50-75%) % DOPPLER: LVIT cm/sec A 64.0 cm/sec E 38.0 cm/sec LA cm/sec RVSP 21.0 mmHg LVOT 69.0 cm/sec AOP1/2T m/s Asc. Ao 119 cm/sec RVOT 67.0 cm/sec RA cm/sec PA 81.0 cm/sec AV Gradient Peak 5.7 mmHg AV Mean 3.3 mmHg AV Area 1.6 cm MV Gradient Peak 2.6 mmHg MV Mean 0.97 mmHg MV Area cm COMMENTS: General Studies Program Chair: 1 JENISE SCHRADEROE Sheet Metal Mechanic: 1 Dr. Kim TAPE# PACS Pericardial Effusion N DATE OF SERVICE: FINDINGS: 1. Left ventricular chamber size is within normal limits. Left ventricular systolic function is mildly reduced at 40%. 2. Left atrium, right atrium, and right ventricular chamber sizes are within normal limits. 3. Valvular structures have normal structure and motion. 4. Doppler interrogation reveals [id number] mitral regurgitation, trace tricuspid regurgitation, no other valvular insufficiency or stenosis. Pulmonary ECHOCARDIOGRAM REPORT [id number] JULES GATICA systolic pressure is estimated at 21 mmHg. 5. No evidence of pericardial effusion or left ventricular thrombus. TRANSINT:[id number] Voice Confirmation ID: [id number] DOCUMENT ID: [id number] CHARLOTTE KIM MD at 1651 CC: [id number] DICTATION DATE: 03/25/191201 X RAY EQUIPMENT TESTER: 03/25/19 1209 ADM IN [facility] [address] [place] [address]
[2019-03-28] VITALS: BP 110/64
[2019-03-28 04:30] VITALS: BP 102/72
[2019-03-28 05:06] LABS: BASOPHILS 0.7 % (0-2); EOSINOPHILS 2.3 % (0-7); IMMATURE GRANULOCYTES 0.2 % (0-5); LYMPHOCYTES 46.4 % (15-50); MCH 33.4 pg (26.0-34.0); MCHC 34.2 g/dL (31.0-37.0); MCV 97.7 fL (80.0-100.0); MEAN PLATELET VOLUME 9.7 fL (7.4-10.4); MONOCYTES 9.1 % (2-11); NEUTROPHILS 41.3 % (40-80); PLATELET COUNT 180 10x3/uL (130-400); RBC 3.89 10x6/uL (4.20-6.10); WBC 4.3 10x3/uL (4.8-10.8)
[2019-03-28 05:16] LABS: CALC OSMOLALITY 280 mosm/kg (275-300); CALCIUM 8.2 mg/dL (8.5-10.1); CARBON DIOXIDE 29.9 mmol/L (21.0-32.0); CHLORIDE - SERUM 108 mmol/L (98-107); CREATININE - SERUM 0.9 mg/dL (0.6-1.3); GLUCOSE 105 mg/dL (74-106); POTASSIUM - SERUM 3.8 mmol/L (3.5-5.1); SODIUM 141 mmol/L (136-145); UREA NITROGEN 13 mg/dL (7-18); eGFR NON AFRICAN AMERICAN > 90 mL/min (90-120)
--- NOTE | 2019-03-28 06:00 | NUR ---
PT HAS BEEN AWAKE SINCE 399. ALERT/ORIENTED. DENIES PAIN OR DISCOMFORT. AFTER 199 ABT, IVF SALINE LOCKED. PT HOPING HE WILL BE GOING HOME TODAY. CURRENTLY HE IS OUT WALKING THE HALLS. NO NEEDS VOICED. VERY PLEASANT. CPOC.
--- NOTE | 2019-03-28 07:15 | NUR ---
RECEIVED PT UP WALKING AROUND HALLS AND ROOM DENIES ANY NEEDS OR DISCOMFORT RESP UNLABORED SKIN W/D COLOR WNL NAD NOTED PT STATES DR GUTIÉRREZ IS SUPPOSE TO DISCHARGE HIM TODAY
[2019-03-28 08:06] VITALS: BP 130/85
[2019-03-28] MEDS ORDERED: LEVAQUIN750 MG PO (11:15)
[2019-03-28] MEDS ORDERED: COREG6.25 MG PO (11:16)
--- NOTE | 2019-03-28 11:39 | NUR ---
PER ANIKET OLIVAS APN, NO NEED FOR ASA AT D/C, STATES PT HAD DEMAND ISCHEMIA.
--- NOTE | 2019-03-28 12:30 | NUR ---
REVIEWED DISCHARGE INSTRUCTIONS WITH PT STATES UNDERSTANDING COPY GIVEN DCD SALINE LOCK TO LFA WITH IV CATHETER INTACT SITE FREE OF REDNESS OR EDEMAPT DISCHARGED HOME IN STABLE CONDITION WITH ALL PERSONAL BELONGINGS LEFT UNIT WALKING WITH STAFF TO BE PICKED UP AT ER EXIT
--- NOTE | 2019-03-30 09:09 | MORECARE ---
CASE MANAGEMENT DISCHARGE SUMMARY PATIENT: JULES GATICA UNIT: [id number] ADM DATE: 03/25/19 AGE: 49 : 68 SEX: M ROOM/BED: D.7500 AUTHOR: AMBIKADOC PHYSICIAN: REFERRING PHYSICIAN: EMILY GUTIÉRREZ MD DATE OF SERVICE: 03/30/19 Discharge Plan Patient Name: JULES GATICA Facility: [facility]:[place] : 1970 Planned Disposition: Home Anticipated Discharge Date: 03/28/19 Discharge Date: 03/28/2019 Expected LOS: 3 Initial Reviewer: [email or web address] Initial Review Date: 03/25/2019 Generated: 03/30/19 10:08 am DCP- Discharge Planning Updated by [email or web address]: Jennifer Caldwell on 03/25/19 1:[address] Patient Name: JULES GATICA Admission Status: ER Accout number: [id number] Admission Date: 03-25-2019 : 1970 Admission Diagnosis: Attending: EMILY GUTIÉRREZ Current LOS: 1 Anticipated DC Date: 03-27-2019 Planned Disposition: Primary Insurance: [facility] [employer] Discharge Planning Comments: CM met with patient to complete initial dc planning assessment. CM educated patient on the CM role and verbal consent given by patient to complete assessment. CM verified patient's address, phone number, and emergency contact phone numbers. Patient lives at home with his significant other. At discharge patient plans to return home and feels this is a safe discharge. CM discussed availability of home health, rehab services, and medical equipment. Patient denied known discharge needs at this time. Patient reports his sister in law will transport him home at time of discharge. CM will continue to follow and will assist as needed with dc plans/needs. Sports Management Intern: Jennifer Caldwell RN, [facility] DCPIA - Discharge Planning Initial Assessment Updated by [email or web address]: Jennifer Caldwell on 03/25/19 2:44 pm * Is the patient Alert and Oriented? Yes * How many steps to enter\exit or inside your home? * PCP Dr. Urban * Pharmacy [facility] * Preadmission Environment Home with Family * ADLs Independent * Equipment None * List name and contact numbers for known caregivers / representatives who currently or will assist patient after discharge: Marta Gaitan - sister - [phone] Spencer Villa - brother - [phone] * Verbal permission to speak to the caregivers and representatives has been obtained from the patient. Yes * Community resources currently utilized None * Additional services required to return to the preadmission environment? No * Can the patient safely return to the preadmission environment? Yes * Has this patient been hospitalized within the prior 30 days at any hospital? No Last DP export: 03/25/19 1:49 p Patient Name: JULES GATICA Page [id number] at 0909 All edits/amendments must be made on the electronic document DICTATION DATE: 03/30/19907 DENTURE FINISHER: HERBERT 03/30/19907 RPT#: [id number] DC DATE:03/28/19 STATUS: DIS IN [facility] [address] [place] [address] END OF REPORT
== END 2019-03-28 12:30 | disposition home or self-care (01) | DRG 281 ==
LOC: D.ER 09:20 → D.M2 14:07
PROVIDERS: Family Medicine; Internal Medicine Interventional Cardiology; ADMIT Internal Medicine Nephrology; ATTEND Internal Medicine Nephrology
PROC: B2151ZZ Fluoroscopy of Left Heart using Low Osmolar Contrast (ICD-10-PCS; 2019-03-26)
PROC: 4A023N7 Measurement of Cardiac Sampling and Pressure, Left Heart, Percutaneous Approach (ICD-10-PCS; 2019-03-26)
PROC: B2111ZZ Fluoroscopy of Multiple Coronary Arteries using Low Osmolar Contrast (ICD-10-PCS; principal; 2019-03-26 12:00)
DX: I21.4 Non-ST elevation (NSTEMI) myocardial infarction (principal); I42.9 Cardiomyopathy, unspecified; K50.00 Crohn's disease of small intestine without complications; K21.9 Gastro-esophageal reflux disease without esophagitis

== ENCOUNTER 2019-05-28 01:40 | Emergency (ER) | payer MEDICARE, MEDICAID ==
[~2019-05-28] VITALS: Ht 157.5 cm; Wt 61.4 kg
[~2019-05-28 01:40] MED LIST changes: +CARAFATE1 G PO; +COREG6.25 MG PO; +LEVAQUIN750 MG PO; +NEXIUM40 MG PO; +[UNRECOGNIZED DRUG - REMARK]; +[UNRECOGNIZED DRUG - REMARK]
[2019-05-28 01:43] VITALS: Ht 157.5 cm; Wt 61.4 kg
[2019-05-28 03:36] LABS: BASOPHILS 0.2 % (0-2); EOSINOPHILS 1.9 % (0-7); HEMATOCRIT 39.7 % (42.0-54.0); HEMOGLOBIN 13.9 g/dL (13.5-17.5); IMMATURE GRANULOCYTES 0.2 % (0-5); LYMPHOCYTES 15.6 % (15-50); MCH 33.5 pg (26.0-34.0); MCV 95.7 fL (80.0-100.0); MEAN PLATELET VOLUME 9.4 fL (7.4-10.4); MONOCYTES 8.6 % (2-11); NEUTROPHILS 73.5 % (40-80); PLATELET COUNT 190 10x3/uL (130-400); RBC 4.15 10x6/uL (4.20-6.10); RDW 12.1 % (11.5-14.5); WBC 5.3 10x3/uL (4.8-10.8)
[2019-05-28 03:46] LABS: ALBUMIN 3.7 g/dL (3.4-5.0); ALKALINE PHOSPHATASE 58 U/L (46-116); ALT (SGPT) 29 U/L (10-68); BILIRUBIN - TOTAL 0.76 mg/dL (0.2-1.3); CALC OSMOLALITY 284 mosm/kg (275-300); CALCIUM 8.5 mg/dL (8.5-10.1); CARBON DIOXIDE 29.7 mmol/L (21.0-32.0); CHLORIDE - SERUM 104 mmol/L (98-107); CREATININE - SERUM 0.8 mg/dL (0.6-1.3); GLUCOSE 98 mg/dL (74-106); POTASSIUM - SERUM 3.8 mmol/L (3.5-5.1); PROTEIN - SERUM 6.9 g/dL (6.4-8.2); SODIUM 142 mmol/L (136-145); UREA NITROGEN 17 mg/dL (7-18); eGFR NON AFRICAN AMERICAN > 90 mL/min (90-120)
[2019-05-28 03:48] LABS: APPEARANCE CLEAR (CLEAR); BILIRUBIN NEGATIVE (NEGATIVE); COLOR YELLOW (YELLOW); GLUCOSE NEGATIVE (NEGATIVE); KETONE MODERATE mg/dL (NEGATIVE); NITRITE NEGATIVE (NEGATIVE); PROTEIN NEGATIVE (NEGATIVE); SPECIFIC GRAVITY 1.025 (1.005-1.020); UROBILINOGEN NORMAL (NORMAL)
[2019-05-28 03:49] LABS: AMYLASE - SERUM 26 U/L (25-115); BACTERIA FEW /hpf (NEGATIVE); EPITHELIAL CELLS 0-5 /hpf (0-5); LIPASE 94 U/L (73-393); RED CELLS - URINE 0-5 /hpf (0-5); WHITE CELLS - URINE 0-5 /hpf (NEGATIVE)
[2019-05-28 04:02] LABS: TROPONIN-I < 0.017 ng/mL (0.000-0.060)
[2019-05-28] MEDS ORDERED: HYDROCODON-ACE1 EAC7 PO (06:13)
[2019-05-28] MEDS ORDERED: FLAGYL500 MG PO (06:13)
[2019-05-28] MEDS ORDERED: CIPRO500 MG PO (06:13)
[2019-05-28] MEDS ORDERED: ZOFRAN ODT4 MG/UDTAB PO (06:14)
[2019-05-28 06:26] VITALS: BP 114/76
== END 2019-05-28 06:27 | disposition home or self-care (01) ==
LOC: D.ER 01:40
PROVIDERS: Family Medicine
DX: K52.9 Noninfective gastroenteritis and colitis, unspecified (principal)

== ENCOUNTER 2019-09-03 06:08 | Emergency (ER) | payer MEDICARE, MEDICAID ==
[~2019-09-03] VITALS: Ht 157.5 cm; Wt 65.0 kg
[~2019-09-03 06:08] MED LIST changes: +CIPRO500 MG PO; +FLAGYL500 MG PO; +HYDROCODON-ACE1 EAC7 PO; +ZOFRAN ODT4 MG/UDTAB PO
[2019-09-03 06:09] VITALS: Ht 157.5 cm; Wt 65.0 kg
[2019-09-03] MEDS ORDERED: PROTONIX40 MG (06:12)
[2019-09-03] MEDS ORDERED: PEPCID AC20 MG (06:12)
[2019-09-03 07:09] LABS: CALC OSMOLALITY 286 mosm/kg (275-300); CALCIUM 8.6 mg/dL (8.5-10.1); CARBON DIOXIDE 27.1 mmol/L (21.0-32.0); CHLORIDE - SERUM 107 mmol/L (98-107); CREATININE - SERUM 0.9 mg/dL (0.6-1.3); GLUCOSE 121 mg/dL (74-106); SODIUM 142 mmol/L (136-145); UREA NITROGEN 20 mg/dL (7-18); eGFR NON AFRICAN AMERICAN > 90 mL/min (90-120)
[2019-09-03 07:10] LABS: APPEARANCE CLEAR (CLEAR); BILIRUBIN NEGATIVE (NEGATIVE); COLOR YELLOW (YELLOW); GLUCOSE NEGATIVE (NEGATIVE); KETONE NEGATIVE (NEGATIVE); NITRITE NEGATIVE (NEGATIVE); PROTEIN NEGATIVE (NEGATIVE); SPECIFIC GRAVITY 1.025 (1.005-1.020); UROBILINOGEN NORMAL (NORMAL)
[2019-09-03 07:21] LABS: ALBUMIN 3.5 g/dL (3.4-5.0); ALT (SGPT) 29 U/L (10-68); LIPASE 141 U/L (73-393)
[2019-09-03 07:31] LABS: BASOPHILS 0.6 % (0-2); EOSINOPHILS 2.5 % (0-7); HEMATOCRIT 39.7 % (42.0-54.0); IMMATURE GRANULOCYTES 0.2 % (0-5); LYMPHOCYTES 33.4 % (15-50); MCH 32.3 pg (26.0-34.0); MCHC 32.7 g/dL (31.0-37.0); MCV 98.8 fL (80.0-100.0); MEAN PLATELET VOLUME 9.6 fL (7.4-10.4); NEUTROPHILS 55.3 % (40-80); RBC 4.02 10x6/uL (4.20-6.10); RDW 12.4 % (11.5-14.5); WBC 5.1 10x3/uL (4.8-10.8)
[2019-09-03 07:33] LABS: ALKALINE PHOSPHATASE 52 U/L (46-116); BILIRUBIN - TOTAL 0.18 mg/dL (0.2-1.3); PROTEIN - SERUM 6.3 g/dL (6.4-8.2)
[2019-09-03 07:37] LABS: PLATELET COUNT 235 10x3/uL (130-400)
[2019-09-03] MEDS ORDERED: ULTRAM50 MG PO (08:49)
[2019-09-03] MEDS ORDERED: ZOFRAN ODT4 MG/UDTAB PO (08:49)
[2019-09-03] MEDS ORDERED: LOMOTIL 2.5-0.1 EAC1 PO (08:49)
[2019-09-03 09:47] VITALS: BP 98/60
== END 2019-09-03 09:48 | disposition home or self-care (01) ==
LOC: D.ER 06:08
PROVIDERS: Family Medicine
DX: A08.4 Viral intestinal infection, unspecified (principal)

== ENCOUNTER 2019-09-24 11:53 | Observation (INO) | payer MEDICARE, MEDICAID ==
[~2019-09-24] VITALS: Ht 157.5 cm; Wt 63.1 kg
[~2019-09-24 11:53] MED LIST changes: +LOMOTIL 2.5-0.1 EAC1 PO; +PEPCID AC20 MG; +PROTONIX40 MG; +ULTRAM50 MG PO
[2019-09-24 13:11] LABS: CALC OSMOLALITY 285 mosm/kg (275-300); CALCIUM 8.5 mg/dL (8.5-10.1); CARBON DIOXIDE 31.3 mmol/L (21.0-32.0); CHLORIDE - SERUM 106 mmol/L (98-107); CREATININE - SERUM 0.9 mg/dL (0.6-1.3); GLUCOSE 95 mg/dL (74-106); POTASSIUM - SERUM 3.8 mmol/L (3.5-5.1); SODIUM 143 mmol/L (136-145); UREA NITROGEN 15 mg/dL (7-18); eGFR NON AFRICAN AMERICAN > 90 mL/min (90-120)
[2019-09-24 13:21] LABS: BASOPHILS 0.2 % (0-2); HEMOGLOBIN 13.5 g/dL (13.5-17.5); LYMPHOCYTES 41.4 % (15-50); MCH 33.2 pg (26.0-34.0); MCHC 33.8 g/dL (31.0-37.0); MCV 98.3 fL (80.0-100.0); MEAN PLATELET VOLUME 9.6 fL (7.4-10.4); MONOCYTES 6.8 % (2-11); NEUTROPHILS 50.6 % (40-80); PLATELET COUNT 231 10x3/uL (130-400); RBC 4.07 10x6/uL (4.20-6.10); RDW 12.4 % (11.5-14.5)
[2019-09-24 13:25] LABS: APTT 26.8 SECONDS (22.8-39.4); INR 1.02 (0.85-1.17); PROTIME 13.3 SECONDS (11.6-15.0)
[2019-09-24 13:28] LABS: ALBUMIN 3.9 g/dL (3.4-5.0); ALKALINE PHOSPHATASE 43 U/L (46-116); ALT (SGPT) 29 U/L (10-68); BILIRUBIN - TOTAL 0.55 mg/dL (0.2-1.3); CKMB 5.1 U/L (0.0-3.6); CREATINE KINASE 306 UL (21-232); MAGNESIUM - SERUM 1.9 mg/dL (1.8-2.4); PROTEIN - SERUM 7.1 g/dL (6.4-8.2)
[2019-09-24 13:30] LABS: TROPONIN-I < 0.017 ng/mL (0.000-0.060)
[2019-09-24 14:29] VITALS: BP 120/70
--- NOTE | 2019-09-24 14:32 | NUR ---
PT CONT. TO SIT IN LOBBY, VITAL SIGNS OBTAINED. NO DISTRESS NOTED. EKG DONE ON ADMISSION TO TRIAGE, DR. REEVES AWARE.
[2019-09-24 17:43] LABS: CKMB 4.2 U/L (0.0-3.6); CREATINE KINASE 272 UL (21-232)
[2019-09-24 18:02] LABS: TROPONIN-I < 0.017 ng/mL (0.000-0.060)
--- NOTE | 2019-09-24 19:56 | NUR ---
REPORT CALLED TO SHAYY FAM. HE STATES THE ROOM IS NOT CLEAN AT THIS TIME.
--- NOTE | 2019-09-24 21:35 | NUR ---
RECIEVED REPORT FROM XOCHITL ORDONEZ. PT ARRIVED BY WHEELCHAIR. INITIAL VSS, PT AAOX4, NO S/S OF RT DISTRESS. PT DENIES CHEST PAIN AT THIS TIME. NO TELEMETRY ON THE FLOOR AT THIS TIME. NOTIFIED MARKETING INFORMATION MANAGER TO INFORM ME ABOUT TELE AVAILABILITY. SANDWICH PROVIDED PER PT REQUEST AT THIS TIME. PT IS PLACED NPO AFTER MIDNIGHT FOR CARDIOLOGY CONSULT. WILL CTM. CL WITHIN REACH.
[2019-09-24 22:12] VITALS: BP 109/63; BMI 25.4
--- NOTE | 2019-09-25 00:32 | NUR ---
TELEMETRY ON 66 SINUS RYTHM.
[2019-09-25 01:02] VITALS: Ht 157.5 cm; Wt 63.1 kg
[2019-09-25 01:07] LABS: CKMB 3.5 U/L (0.0-3.6); CREATINE KINASE 199 UL (21-232); TROPONIN-I < 0.017 ng/mL (0.000-0.060)
[2019-09-25 06:32] LABS: BASOPHILS 0.2 % (0-2); EOSINOPHILS 2.3 % (0-7); HEMATOCRIT 37.4 % (42.0-54.0); HEMOGLOBIN 12.3 g/dL (13.5-17.5); LYMPHOCYTES 34.3 % (15-50); MCH 32.6 pg (26.0-34.0); MCHC 32.9 g/dL (31.0-37.0); MCV 99.2 fL (80.0-100.0); MEAN PLATELET VOLUME 10.2 fL (7.4-10.4); MONOCYTES 7.7 % (2-11); NEUTROPHILS 55.5 % (40-80); PLATELET COUNT 192 10x3/uL (130-400); RBC 3.77 10x6/uL (4.20-6.10); RDW 12.5 % (11.5-14.5); WBC 4.3 10x3/uL (4.8-10.8)
[2019-09-25 07:08] LABS: CALC OSMOLALITY 289 mosm/kg (275-300); CALCIUM 8.4 mg/dL (8.5-10.1); CARBON DIOXIDE 26.9 mmol/L (21.0-32.0); CHLORIDE - SERUM 110 mmol/L (98-107); CKMB 2.6 U/L (0.0-3.6); CREATINE KINASE 169 UL (21-232); CREATININE - SERUM 0.7 mg/dL (0.6-1.3); GLUCOSE 100 mg/dL (74-106); PHOSPHOROUS 3.7 mg/dL (2.5-4.9); POTASSIUM - SERUM 3.9 mmol/L (3.5-5.1); SODIUM 145 mmol/L (136-145); TROPONIN-I < 0.017 ng/mL (0.000-0.060); UREA NITROGEN 15 mg/dL (7-18); eGFR NON AFRICAN AMERICAN > 90 mL/min (90-120)
--- NOTE | 2019-09-25 08:47 | NUR ---
ALERT AND ORIENTED. TELEMERTY SHOWS SR 77. DENIES ANY PAIN AT PRESENT TIME. RIGHT FORE ARM SL. SR UP WITH CALL LIGHT IN REACH
[2019-09-25] MEDS ORDERED: COREG 3.1253.125 MG PO (12:49)
[2019-09-25 12:59] LABS: UDS - AMPHET NEGATIVE QUAL (NEGATIVE); UDS - BARB NEGATIVE QUAL (NEGATIVE); UDS - BENZO POSITIVE QUAL (NEGATIVE); UDS - COCAINE NEGATIVE QUAL (NEGATIVE); UDS - OPIATE NEGATIVE QUAL (NEGATIVE); UDS - PCP NEGATIVE QUAL (NEGATIVE); UDS - THC POSITIVE QUAL (NEGATIVE)
--- NOTE | 2019-09-28 08:28 | EC ---
PATIENT:JULES GATICA DATE OF SERVICE: 09/24/19 SEX: M MEDICAL RECORD: [id number] DATE OF : [birth year] LOCATION:D.M2 D.212 AGE OF PATIENT: 49 ADMISSION DATE: 09/24/19 REFERRING PHYSICIAN: INTERPRETING PHYSICIAN: DAJA ZALDIVAR MD ECHOCARDIOGRAM REPORT ECHO CHARGES 4 ECHO COMPLETE Date: 09/25/19 CLINICAL DIAGNOSIS: CMP ECHOCARDIOGRAPHIC MEASUREMENTS (adult normal given) AC root (d.<3.7cm) 2.6 cm LV Septum d (<1.2 cm> 1.2 cm Valve Excursion 1.0 cm LV Septum (systole) 1.3 cm Left Atria (s.<4.0cm> 2.7 cm LVPW d(<1.2cm) 0.8 cm RV (d.<2.3cm) 2.9 cm LVPW (sytole) 0.9 cm LV diastole(<5.6CM) 5.4 cm MV E-F(>70mm/sec) cm LV systole 4.2 cm LVOT Diameter 2.1 cm MV exc.(>10mm) cm Est.ejection fraction (50-75%) % DOPPLER: LVIT cm/sec A 55 cm/sec E 65 cm/sec LA cm/sec RVSP 22.4 mmHg LVOT 87 cm/sec AOP1/2T m/s Asc. Ao 140 cm/sec RVOT 54 cm/sec RA cm/sec PA 78 cm/sec AV Gradient Peak 7.9 mmHg AV Mean 3.2 mmHg AV Area 2.3 cm MV Gradient Peak 2.2 mmHg MV Mean 1.1 mmHg MV Area cm COMMENTS: Cilnical Scientist: Lizzette [facility] Electrician Machine Shop: 3 Dr. Estrella TAPE# PACS Pericardial Effusion N DATE OF SERVICE: Adequate 2D, color flow imaging, spectral Doppler, and M-Mode. No LVH. LV internal dimension is normal. Wall motion is normal. EF is greater than or equal to 55%. Aortic valve is tricuspid. No evidence of stenosis by Doppler interrogation. Left atrium is normal at 2.7 cm. Mitral valve shows no prolapse. Trace MR. Right-sided chambers are grossly normal. Trace TR. TRANSINT:[id number] Voice Confirmation ID: [id number] DOCUMENT ID: [id number] ECHOCARDIOGRAM REPORT [id number] JULES GATICA DAJA ZALDIVAR MD at 0828 CC: [id number] DICTATION DATE: 09/25/19 1318 MANAGER GROUP HOME: 09/25/19 2250 DIS IN 09/25/19 [address] [place] [address]
== END 2019-09-25 16:02 | disposition home or self-care (01) ==
LOC: D.ER 11:53 → D.M2 18:45 → OBSVTIME 18:45 → D.M2 18:45
PROVIDERS: Emergency Medicine; ADMIT Internal Medicine Nephrology; ATTEND Internal Medicine Nephrology
DX: R07.9 Chest pain, unspecified (principal); F10.20 Alcohol dependence, uncomplicated; K21.9 Gastro-esophageal reflux disease without esophagitis; I42.6 Alcoholic cardiomyopathy

== ENCOUNTER 2019-09-27 12:26 | Emergency (ER) | payer MEDICARE, MEDICAID ==
[~2019-09-27] VITALS: Ht 157.5 cm; Wt 63.6 kg
[~2019-09-27 12:26] MED LIST changes: +COREG 3.1253.125 MG PO
[2019-09-27 12:28] VITALS: Ht 157.5 cm; Wt 63.6 kg
[2019-09-27 12:59] LABS: BASOPHILS 0.2 % (0-2); HEMATOCRIT 41.3 % (42.0-54.0); HEMOGLOBIN 13.9 g/dL (13.5-17.5); IMMATURE GRANULOCYTES 0.2 % (0-5); LYMPHOCYTES 19.4 % (15-50); MCH 33.1 pg (26.0-34.0); MCHC 33.7 g/dL (31.0-37.0); MCV 98.3 fL (80.0-100.0); MEAN PLATELET VOLUME 9.6 fL (7.4-10.4); NEUTROPHILS 70.2 % (40-80); PLATELET COUNT 196 10x3/uL (130-400); RDW 12.4 % (11.5-14.5); WBC 5.1 10x3/uL (4.8-10.8)
[2019-09-27 13:11] LABS: CALC OSMOLALITY 282 mosm/kg (275-300); CALCIUM 8.3 mg/dL (8.5-10.1); CHLORIDE - SERUM 103 mmol/L (98-107); CREATININE - SERUM 1.3 mg/dL (0.6-1.3); GLUCOSE 105 mg/dL (74-106); SODIUM 141 mmol/L (136-145); UREA NITROGEN 18 mg/dL (7-18); eGFR NON AFRICAN AMERICAN 62 mL/min (90-120)
[2019-09-27 13:22] LABS: APPEARANCE CLEAR (CLEAR); BILIRUBIN NEGATIVE (NEGATIVE); COLOR YELLOW (YELLOW); GLUCOSE NEGATIVE (NEGATIVE); KETONE NEGATIVE (NEGATIVE); NITRITE NEGATIVE (NEGATIVE); PROTEIN NEGATIVE (NEGATIVE); UROBILINOGEN NORMAL (NORMAL)
[2019-09-27 13:25] LABS: ALBUMIN 3.5 g/dL (3.4-5.0); ALKALINE PHOSPHATASE 56 U/L (46-116); ALT (SGPT) 26 U/L (10-68); AMYLASE - SERUM 29 U/L (25-115); BILIRUBIN - TOTAL 0.56 mg/dL (0.2-1.3); LIPASE 95 U/L (73-393)
[2019-09-27 13:27] LABS: TROPONIN-I < 0.017 ng/mL (0.000-0.060)
[2019-09-27 14:29] VITALS: BP 110/58
[2019-09-27] MEDS ORDERED: ZOFRAN4 MG PO (14:35)
[2019-09-27] MEDS ORDERED: IMODIUM2 MG PO (14:35)
== END 2019-09-27 14:57 | disposition home or self-care (01) ==
LOC: D.ER 12:26
PROVIDERS: Family Medicine
DX: K52.9 Noninfective gastroenteritis and colitis, unspecified (principal)

== ENCOUNTER → 2019-10-01 08:01 | Outpatient (CLI) | payer MEDICARE, MEDICAID ==
[2019-09-27 12:28] VITALS: BMI 25.6
[~2019-10-01 08:01] MED LIST changes: +IMODIUM2 MG PO; +ZOFRAN4 MG PO
[2019-10-01 08:38] LABS: BASOPHILS 0.5 % (0-2); HEMATOCRIT 39.5 % (42.0-54.0); HEMOGLOBIN 13.2 g/dL (13.5-17.5); IMMATURE GRANULOCYTES 0.2 % (0-5); LYMPHOCYTES 34.1 % (15-50); MCH 33.2 pg (26.0-34.0); MCHC 33.4 g/dL (31.0-37.0); MCV 99.2 fL (80.0-100.0); MEAN PLATELET VOLUME 9.2 fL (7.4-10.4); MONOCYTES 7.5 % (2-11); NEUTROPHILS 56.7 % (40-80); PLATELET COUNT 223 10x3/uL (130-400); RBC 3.98 10x6/uL (4.20-6.10); RDW 12.5 % (11.5-14.5); WBC 5.9 10x3/uL (4.8-10.8)
[2019-10-01 08:53] LABS: APTT 24.8 SECONDS (22.8-39.4); INR 0.92 (0.85-1.17); PROTIME 12.3 SECONDS (11.6-15.0)
[2019-10-01 08:55] LABS: % SATURATION 20 % (15-55); IRON 54 ug/dl (35-150); TOTAL IRON BIND CAPACITY 270 ug/dl (260-445); UNSAT IRON BIND CAPACITY 216 ug/dl (150-375)
[2019-10-01 09:09] LABS: ALBUMIN 3.5 g/dL (3.4-5.0); BILIRUBIN - DIRECT 0.06 mg/dL (0.00-0.30); BILIRUBIN - INDIRECT 0.15 mg/dL (0.00-1.00); BILIRUBIN - TOTAL 0.21 mg/dL (0.2-1.3); CHOL - HDL RATIO 2.5 ratio (2.3-4.9); LDL-HDL RATIO 1.3 ratio (1.5-3.5); PROTEIN - SERUM 6.9 g/dL (6.4-8.2)
[2019-10-02 07:14] LABS: ANA REFLEX - DIRECT Negative (Negative)
[2019-10-02 09:10] LABS: HAPTOGLOBIN 193 mg/dL (23-355)
[2019-10-02 12:10] LABS: HEPATITIS C ANTIBODY <0.1 S/CO RAT (0.0-0.9)
[2019-10-02 15:10] LABS: ALPHA FETOPROTEIN -(TUMOR MRK) 1.4 ng/mL (0.0-8.3)
== END | disposition home or self-care (01) ==
LOC: D.LAB 08:00 → D.US 08:30
PROVIDERS: ATTEND Internal Medicine Gastroenterology
DX: R16.0 Hepatomegaly, not elsewhere classified (principal)

== ENCOUNTER 2020-11-27 17:00 | Observation (INO) | payer MEDICARE, MEDICAID ==
[~2020-11-27] VITALS: Ht 157.5 cm; Wt 62.7 kg
--- NOTE | ~2020-11-27 | HEMODYNAMI ---
PATIENT:JULES GATICA MEDICAL RECORD: [id number] : [birth year] [id number] ADMISSION DATE: 11/27/20 Generatedon:111:13 Patient name: JULES GATICA Patient #: [id number] : 1970 Date of study: 11/28/2020 Page: Of Hemodynamic Procedure Report Patient Data Patient Demographics Procedure consent was obtained First Name: JULES Gender: Male Last Name: GAVI : 1970 Middle Initial: STEVEN Age: 50 year(s) Patient #: [id number] Race: Unknown SSN: [id number] Additional ID: [id number] Contact details [address]: [address] [place] [address] State: [place] City: [place] Zip code: [address] Past Medical History Allergies Allergen Reaction Date Comments Reported Other allergy 03/26/2019 iodine Admission Admission Data Admission Date: 11/27/2020 Admission Time: 18:38 Arrival Date: 11/28/2020 Arrival Time: 0:00 Admit Source: Other Insurance Payor: Medicaid Room #: D.2117 [facility] #: [id number] Height (in.): 61.81 BSA: 1.62 (m2) Height (cm.): 157 BMI: 25.15 (kg/m2) Weight (lbs.): 136.69 Weight (kg.): 62 Lab Results Lab Result Date: 11/28/2020 Lab Result Time: 0:00 Biochemistry Name Units Result Min Max BUN mg/dl 14 --(--*-)-- 7 18 Creatinine mg/dl 0.8 --(-*--)-- 0.6 1.3 eGFR ml/min 90 --(*---)-- 90 120 NONAFRICAN CBC Name Units Result Min Max Hemoglobin g/dl 12.7 -*(----)-- 13.5 17.5 Procedure Procedure Types Cath Procedure Diagnostic Procedure LHC LHC w/Coronaries Sedation Charges Moderate Sedation 10-24 minutes Procedure Description Procedure Date Procedure Date: 11/28/2020 Procedure Start Time: 10:44 Procedure End Time: 11:03 Procedure Staff Name Function Vicente Landrum MD Performing Physician Flora Shearer RT Monitor Haleigh Willard RT Scrub Derrick Morley RN Nurse Procedure Data Cath Procedure Fluoroscopy Diagnostic fluoroscopy Total fluoroscopy Time: 0.9 time: 0.9 min min Diagnostic fluoroscopy Total fluoroscopy dose: 178 dose: 178 mGy mGy Contrast Material Contrast Material Type Amount (ml) Isovue 300 52 Entry Location Entry Primary Successful Side Size Upsize Upsize Entry Closure Succes sful Closure Location (Fr) 1 (Fr) 2 (Fr) Remarks Device Remarks Femoral Right 5 Fr Exoseal artery Estimated blood loss: 10 ml Diagnostic catheters Device Type Used For End Catheter Placement MULTIPACK JL 4.0 5Fr Procedure catheter MULTIPACK 3DRC 5Fr Procedure catheter MULTIPACK Pigtail 5 Fr Ventriculography catheter Procedure Complications No complications Procedure Medications Medication Administration Route Dosage Oxygen etCO2 Nasal cannula 2 l/min Lidocaine 2% added to field 20 Heparin Flush Bag added to field 2 bags (1000units/500ml NS) 0.9% NaCl I.V. 100 ml/hr Benadryl I.V. 50 mg Versed I.V. 2 mg Fentanyl I.V. 100 mcg Versed I.V. 1 mg Fentanyl I.V. 25 mcg Radial Cocktail added to field 1 syringe (Verapamil 2mg/Nitro 400mcg/Heparin 1500units) Versed I.V. 1 mg Ativan 1 mg Romazicon I.V. 0.25 mg Hemodynamics Rest BSA: 1.62 (m2) HGB: 12.7 (g/dl) O2 Consumption: Estimated: 192.96 (ml/min) O2 Co nsumption indexed: Estimated:119.11 (ml/min/m) Heart Rate: 69 (bpm) Pressure Samples Time Site Value (mmHg) Purpose Heart Use Rate(bpm) 10:52 LV 92/13,17 Snapshot 76 Snapshots Pre Cath Intra NCS Post Cath Vital Signs Time Heart Resp SPO2 etCO2 NIBP (mmHg) Rhythm Pain Sedation Rate (ipm) (%) (mmHg) Status Level (bpm) 10:34:00 60 16 99 0 110/66(85) NSR 0 (11) 10(A) , No pain 10:38:06 70 12 99 18 112/70(82) NSR 0 (11) 10(A) , No pain 10:42:07 69 13 97 37.5 91/69(85) NSR 0 (11) 10(A) , No pain 10:46:09 71 14 96 39.1 107/64(82) NSR 0 (11) 10(A) , No pain 10:50:47 90 12 93 0 106/69(0) NSR 0 (11) 9(A) , No pain 10:55:34 74 15 100 27 126/81(109) NSR 0 (11) 9(A) , No pain 11:09:30 85 14 96 13.5 110/62(92) NSR 0 (11) 10(A) , No pain Medications Time Medication Route Dose Verified Delivered Reason Notes Effectiveness by by 10:29:07 Oxygen etCO2 2 l/min Vicente Buffie [facility] 10:29:13 Lidocaine 2% added 20ml Vicente Vicente for local to vial [facility] anesthetic field MD CARTER 10:29:20 Heparin Flush added 2 bags Vicente Vicente used for Bag to [facility] procedure (1000units/500ml field MD CARTER NS) 10:29:28 0.9% NaCl I.V. 100 Vicente Buffie Per ml/hr Lucita Morley RN physician 10:30:50 Benadryl I.V. 50 mg Vicente Buffie used for Lucita Omrley greige mender 10:39:16 Versed I.V. 2 mg Vicente Buffie for Lucita Morley RN sedation 10:39:21 Fentanyl I.V. 100 mcg Vicente Buffie for Lucita Morley RN sedation 10:44:26 Versed I.V. 1 mg Vicente Buffie for Lucita Morley RN sedation 10:44:30 Fentanyl I.V. 25 mcg Vicente Buffie for Lucita Morley RN sedation 10:48:40 Versed I.V. 1 mg Vicente Buffie for Lucita Morley RN sedation 10:48:42 Radial Cocktail added 1 Vicente Buffie not used (Verapamil to syringe Lucita Morley RN 2mg/Nitro field CARTER 400mcg/Heparin 1500units) 10:54:15 Ativan IV 1 mg Vicente Buffie Per To preve nt DT St Jt Morley RN physician 10:57:46 Romazicon I.V. 0.25 mg Vicente Buffie Per To rever se St Jt Morley RN physician benzodiazepine effect. Oxygen sat dropped to 82% with apnea. Reversal successful with no apnea and return to normal oxygenation. Procedure Log Time Note 10:06:22 Informed consent obtained and on chart 10:08:15 Procedure Status Urgent Heart Cath (IP). 10:08:16 Time tracking: Regular hours (M-F 7:00 - 5:00) 10:08:18 Plan of Care:Hemodynamics will remain stable., Cardiac rhythm will remain stable., Comfort level will be maintained., Respiratory function will remain adequate., Patient/ family verbilizes understanding of procedure., Procedure tolerated without complication., Recovers from procedure without complications.. 10:15:47 Arrival Date: 11/28/2020 12:00:00 AM 10:16:04 Admit Source: Other 10:16:11 Insurance Payor : Medicaid 10:16:18 Patient Height : 61.81 inches 10:16:22 Patient Weight : 136.69 lbs 10:16:55 Lab Result : eGFR NONAFRICAN 90 ml/min 10:16:55 Lab Result : Creatinine 0.8 mg/dl 10:16:55 Lab Result : BUN 14 mg/dl 10:16:55 Lab Result : Hemoglobin 12.7 g/dl 10:17:06 Diagnostic Cath Status : Urgent 10:17:17 Haleigh Willard RT(R) sent for patient. Start room use. 10:26:42 Patient received from Med II to CCL 1 Alert and oriented. Tansferred to table in Supine position. 10:26:43 Warm blankets applied, and lacho hugger turned on for patient comfort. 10:26:44 Correct patient and procedure confirmed by team. 10:26:45 ECG and BP/O2 sat monitors applied to patient. 10:27:08 H&P Date Dictated: 11/27/2020 Within 30 days and on chart., H&P Addendum completed by physician on day of procedure. (MUST COMPLETE FOR ALL OUTPATIENTS). 10:27:10 Pre-procedure instructions explained to patient. 10:27:13 Family unavailable. 10:27:14 Patient NPO since Midnight. 10:28:55 Vital chart was started 10:29:07 Oxygen 2 l/min etCO2 Nasal cannula was administered by Derrick Morley RN; used for procedure; Verbal order read back and verified. 10:29:13 Lidocaine 2% 20ml vial added to field was administered by Vicente Landrum MD; for local anesthetic; Verbal order read back and verified. 10:29:20 Heparin Flush Bag (1000units/500ml NS) 2 bags added to field was administered by Vicente Landrum MD; used for procedure; Verbal order read back and verified. 10:29:28 0.9% NaCl 100 ml/hr I.V. was administered by Derrick Morley RN; Per physician; Verbal order read back and verified. 10:30:50 Benadryl 50 mg I.V. was administered by Derrick Morley RN; used for procedure; Verbal order read back and verified. 10:35:07 Baseline sample Acquired. 10:35:10 Full Disclosure recording started 10:35:16 Is the patient allergic to Iodine/contrast media? Yes. 10:35:17 Was the patient premedicated? Yes 10:35:19 Is patient on blood thinner?No 10:35:21 Patient diabetic? No. 10:35:27 Snore? No 10:35:29 Sleep apnea? No 10:35:34 Airway obstruction? Yes COPD 10:35:38 Dentures? Yes out 10:35:48 IV patent on arrival in left forearm with 0.9% NaCl at [facility]. 10:35:51 Lab results completed and on chart. 10:35:56 Right Radial & Right Groin area was prepped with chlora-prep and draped in sterile fashion 10:35:57 Alarms reviewed by R. N. 10:35:57 Sharps counted by scrub and verified by R.N. 10:37:10 Physician arrived 10:37:11 --------ALL STOP TIME OUT------ 10:37:12 Final Timeout: patient, procedure, and site verified with staff and physician. All members of the team are in agreement. 10:37:14 Right Radial & Right Groin site verified by team. 10:37:19 Fire Safety Assessment: A--An alcohol-based skin anteseptic being used preoperatively., C--Open oxygen or nitrous oxide is being used., D--An ESU, laser, or fiber-optic light is being used. 10:37:24 Physical assessment completed. ASA score P 3 - A patient with severe systemic disease as per Vicente Landrum MD. 10:37:27 2) 60-89 Mildly reduced kidney function, and other findings (as for stage 1) point to kidney disease. 10:37:30 Maximum allowable contrast dose (3.7 X eGFR X 0.75)220 ml. 10:37:37 Sedation plan: IV Moderate Sedation Medication:Versed, Fentanyl 10:37:43 Use device set Radial Dx or PCI 10:37:45 ACIST Syringe (82317) opened to sterile field. 10:37:46 Medline Cath Pack ([id number]) opened to sterile field. 10:37:47 Bag Decanter (2002S) opened to sterile field. 10:37:47 ACIST Hand Control (01355) opened to sterile field. 10:37:47 ACIST Manifold (84955) opened to sterile field. 10:37:48 Tegaderm 4 x 4 (1626W) opened to sterile field. 10:37:52 MBrace Wrist Support ([id number]) opened to sterile field. 10:37:54 EMERALD Guide Wire (429-701) opened to sterile field. 10:37:55 SHEATH 6FR RAIN (5376064) opened to sterile field. 10:39:16 Versed 2 mg I.V. was administered by Derrick Molrey RN; for sedation; Verbal order read back and verified. 10:39:21 Fentanyl 100 mcg I.V. was administered by Derrick Morley RN; for sedation; Verbal order read back and verified. 10:41:07 Zero performed for pressure channel P1 10:44:15 Procedure started. 10:44:26 Versed 1 mg I.V. was administered by Derrick Morley RN; for sedation; Verbal order read back and verified. 10:44:28 Local anesthetic to right radial artery with Lidocaine 2% by Vicente Landrum MD.INITIAL ACCESS ONLY 10:44:30 Fentanyl 25 mcg I.V. was administered by Derrick Morley RN; for sedation; Verbal order read back and verified. 10:47:19 Local anesthetic to right femoral artery with Lidocaine 2% by Vicente Landrum MD.ADDITIONAL ACCESS 10:47:55 SHEATH 5FR Inchelium (GOX470) opened to sterile field. 10:48:16 DIAGNOSTIC Multipack 5Fr catheter set (WS2254) opened to sterile field. 10:48:40 Versed 1 mg I.V. was administered by Derrick Morley RN; for sedation; Verbal order read back and verified. 10:48:42 Radial Cocktail (Verapamil 2mg/Nitro 400mcg/Heparin 1500units) 1 syringe added to field was administered by Derrick Morley RN; ; not used Verbal order read back and verified. 10:49:08 A 5 Fr sheath was inserted into the Right Femoral artery 10:49:25 A MULTIPACK JL 4.0 5Fr catheter was advanced over the wire and used for Procedure. 10:49:41 LCA angiography performed. 10:50:30 Catheter removed. 10:50:38 A MULTIPACK 3DRC 5Fr catheter was advanced over the wire and used for Procedure. 10:51:46 RCA angiography performed. 10:51:52 Catheter removed. 10:52:04 A MULTIPACK Pigtail 5 Fr catheter was advanced over the wire and used for Ventriculography. 10:52:14 LV angiography performed. 10:53:02 EF : 45 % 10:53:04 LV hemodynamics recorded. 10:53:10 Catheter removed. 10:53:22 EXOSEAL 5Fr (EX500) opened to sterile field. 10:53:43 Tegaderm 4 x 4 (1626W) opened to sterile field. 10:54:00 Sheath removed intact; hemostasis achieved with Exoseal to the Right Femoral artery. 10:54:13 Procedure ended.(Physican Out) 10:54:15 Ativan 1 mg IV was administered by Derrick Morley RN; Per physician; To prevent DT Verbal order read back and verified. 10:55:00 Fluoroscopy time 00.90 minutes. 10:55:05 Fluoroscopy dose: 178 mGy 10:55:05 Flurop Dose total: 178 10:55:11 Dose Area Product 9247 mGy/cm. 10:55:16 Contrast amount:Isovue 300 52ml. 10:55:19 Maximum allowable dose exceeded? No. 10:55:58 Insertion/operative site no bleeding no hematoma. 10:56:04 Post-op/insertion site Right Femoral artery dressed using a 4 x 4 and Tegaderm. 10:57:46 Romazicon 0.25 mg I.V. was administered by Derrick Morley RN; Per physician; To reverse benzodiazepine effect. Oxygen sat dropped to 82% with apnea. Reversal successful with no apnea and return to normal oxygenation. Verbal order read back and verified. 11:01:17 Post right femoral artery:stable 11:01:19 Post Procedure Pulses reassessed and unchanged 11:01:24 Post-procedure physical assessment completed. ASA score P 2 - A patient with mild systemic disease as per Vicente Landrum MD. 11:01:27 Post procedure rhythm: unchanged. 11:01:30 Estimated blood loss: 10 ml 11:01:33 Post procedure instruction explained to patient.Patient verbalizes understanding. 11:01:58 Procedure type changed to Cath procedure, Diagnostic procedure, LHC, C w/Coronaries, Sedation Charges, Moderate Sedation 10-24 minutes 11::58 Procedure and supply charges have been captured, reviewed, submitted and are correct. 11:03:04 Procedure Complication : No complications 11:03:07 Vital chart was stopped 11:03:10 [facility] Findings: mild to moderate CAD (<70%) 11:03:14 Operative report dictated upon procedure completion. 11:03:15 See physician's report for complete and final results. 11:03:22 Patient transfered to [facility] with Bed. 11:03:24 Procedure ended. 11:03:24 Full Disclosure recording stopped 11::27 End room use (Document Last) Device Usage Item Name Manufacture Quantity Catalog Hospital Part Current Minima l Lot# / Number Charge Number Stock Stock Serial# Code ACIST Acist 1 66614 552535 317674 402152 20 Syringe Medical (61179) Systems Inc Medline Medline 1 [id number] 965760 68289 388048 5 Cath Pack ([id number]) Bag Microtek 1 035094 53038 458862 5 Decanter Medical Inc. () ACIST Hand Acist 1 06039 263641 816391 225904 5 Control Medical (71956) Systems Inc ACIST Acist 1 25423 319212 191314 994441 5 Manifold Medical (47437) Systems Inc Tegaderm 4 3M 2 1626W 817940 097496 625414 5 x 4 (1626W) MBrace Advanced 1 140-0250-00 801448 22327 334373 5 Wrist Vascular Support Dynamics ([id number]) EMERALD Cardinal 1 502-455 994482 900746 276207 5 Guide Wire Health (502-455) SHEATH 6FR Cardinal 1 9839491 782082 6181136 874502 5 [facility] (6111230) SHEATH 5FR Terumo 1 IOZ476 282155 813518 923719 5 Inchelium (KOK337) DIAGNOSTIC Cardinal 1 OF9445 452670 48431 226244 30 Multipack Health 5Fr catheter set (GW4527) MULTIPACK Cardinal 1 438607 5 JL 4.0 5Fr Health catheter MULTIPACK Cardinal 1 470248 5 3DRC 5Fr Health catheter MULTIPACK Cardinal 1 635991 5 Pigtail 5 Health Fr catheter EXOSEAL 5Fr Cardinal 1 EX500 900314 380892 242515 10 (EX500) Health Signature Audit [place] Stage Time Signature Unsigned Intra-Procedure 11/28/2020 Flora Shearer 11:04:02 AM RT(R) Intra-Procedure 11/28/2020 Derrick Morley RN 11:04:24 AM Intra-Procedure 11/28/2020 Vicente Kapoor 11:13:04 AM Jt [facility] [address] [place] [address]
[~2020-11-27 17:00] MED LIST changes: +MUPIROCIN22 GM TOPICAL; +NAPROSYN500 MG PO
[2020-11-27 17:14] LABS: BASOPHILS 0.5 % (0-2); EOSINOPHILS 0.6 % (0-7); HEMATOCRIT 41.3 % (42.0-54.0); HEMOGLOBIN 13.9 g/dL (13.5-17.5); IMMATURE GRANULOCYTES 0.2 % (0-5); LYMPHOCYTES 30.6 % (15-50); MCH 33.1 pg (26.0-34.0); MCHC 33.7 g/dL (31.0-37.0); MCV 98.3 fL (80.0-100.0); MEAN PLATELET VOLUME 9.3 fL (7.4-10.4); MONOCYTES 6.6 % (2-11); NEUTROPHIL ABS# 3.82 10x3/uL (1.78-5.38); NEUTROPHILS 61.5 % (40-80); PLATELET COUNT 252 10x3/uL (130-400); RDW 12.8 % (11.5-14.5); WBC 6.2 10x3/uL (4.8-10.8)
[2020-11-27 17:23] LABS: APTT 24.5 SECONDS (22.8-39.4); INR 1.06 (0.85-1.17); PROTIME 12.7 SECONDS (11.6-15.0)
[2020-11-27 17:24] LABS: CALC OSMOLALITY 284 mosm/kg (275-300); CALCIUM 9.3 mg/dL (8.5-10.1); CARBON DIOXIDE 31.2 mmol/L (21.0-32.0); CHLORIDE - SERUM 107 mmol/L (98-107); CREATININE - SERUM 1.1 mg/dL (0.6-1.3); GLUCOSE 115 mg/dL (74-106); POTASSIUM - SERUM 3.7 mmol/L (3.5-5.1); SODIUM 142 mmol/L (136-145); UREA NITROGEN 16 mg/dL (7-18); eGFR NON AFRICAN AMERICAN 75 mL/min (90-120)
[2020-11-27 17:40] LABS: ALBUMIN 4.2 g/dL (3.4-5.0); ALKALINE PHOSPHATASE 53 U/L (30-120); ALT (SGPT) 22 U/L (10-68); BILIRUBIN - TOTAL 0.47 mg/dL (0.2-1.3); CREATINE KINASE 103 UL (21-232); MAGNESIUM - SERUM 2.1 mg/dL (1.8-2.4); PROTEIN - SERUM 7.3 g/dL (6.4-8.2)
[2020-11-27 17:42] LABS: TROPONIN-I < 0.017 ng/mL (0.000-0.060)
[2020-11-27 18:53] VITALS: BP 110/77
--- NOTE | 2020-11-27 19:00 | NUR ---
RECEIVED REPORT FROM KAYKAY LUCAS. ASSUMED CARE OF PT.
--- NOTE | 2020-11-27 19:30 | NUR ---
PT ARRIVED TO ROOM 2116 FROM ER. ALERT/ORIENTED. ADMISSION ASSESSMENT AND HISTORY COMPLETED. PT HAS A LIST OF HOME MEDS FROM HIS LAST HOSPITAL STAY AND HE STATES HE DOES NOT TAKE ANY MEDS AT ALL, THAT HE STOPPED THEM MONTHS AGO. REVIEWED PLAN OF CARE. CALL LIGHT IN REACH.
[2020-11-28 00:51] LABS: CKMB 0.9 U/L (0.0-3.6); CREATINE KINASE 84 UL (21-232)
[2020-11-28 00:52] LABS: TROPONIN-I < 0.017 ng/mL (0.000-0.060)
[2020-11-28 02:07] VITALS: BP 110/77; Ht 157.5 cm; Wt 62.7 kg
[2020-11-28 04:27] VITALS: BP 138/77
--- NOTE | 2020-11-28 05:32 | NUR ---
PT C/O CHEST PAIN/DISCOMFORT 06/18. MEDICATED WITH MORPHINE 2MG/ZOFRAN 4MG SIVP. GAVE AM MEDS WITH SIP OF WATER. INSTRUCTED NPO UNTIL SEEN BY SCREW MACHINE SET UP OPERATOR.
[2020-11-28 06:08] LABS: BASOPHILS 0.8 % (0-2); EOSINOPHILS 2.7 % (0-7); HEMATOCRIT 37.8 % (42.0-54.0); HEMOGLOBIN 12.7 g/dL (13.5-17.5); LYMPHOCYTE ABS# 1.55 10x3/uL (1.32-3.57); LYMPHOCYTES 41.1 % (15-50); MCH 32.9 pg (26.0-34.0); MCHC 33.6 g/dL (31.0-37.0); MCV 97.9 fL (80.0-100.0); MEAN PLATELET VOLUME 9.4 fL (7.4-10.4); MONOCYTES 8.8 % (2-11); NEUTROPHIL ABS# 1.76 10x3/uL (1.78-5.38); NEUTROPHILS 46.6 % (40-80); PLATELET COUNT 220 10x3/uL (130-400); RBC 3.86 10x6/uL (4.20-6.10); RDW 12.9 % (11.5-14.5)
[2020-11-28 06:32] LABS: ALBUMIN 3.4 g/dL (3.4-5.0); ALKALINE PHOSPHATASE 40 U/L (30-120); ALT (SGPT) 19 U/L (10-68); BILIRUBIN - TOTAL 0.56 mg/dL (0.2-1.3); CALC OSMOLALITY 284 mosm/kg (275-300); CALCIUM 8.2 mg/dL (8.5-10.1); CARBON DIOXIDE 28.6 mmol/L (21.0-32.0); CHLORIDE - SERUM 108 mmol/L (98-107); CKMB 0.9 U/L (0.0-3.6); CREATINE KINASE 79 UL (21-232); GLUCOSE 111 mg/dL (74-106); POTASSIUM - SERUM 3.9 mmol/L (3.5-5.1); PROTEIN - SERUM 6.1 g/dL (6.4-8.2); SODIUM 142 mmol/L (136-145); TROPONIN-I < 0.017 ng/mL (0.000-0.060); UREA NITROGEN 14 mg/dL (7-18)
[2020-11-28 06:33] LABS: CREATININE - SERUM 0.8 mg/dL (0.6-1.3); eGFR NON AFRICAN AMERICAN > 90 mL/min (90-120)
[2020-11-28 06:46] LABS: WBC 3.8 10x3/uL (4.8-10.8)
[2020-11-28 08:00] VITALS: BP 111/66
--- NOTE | 2020-11-28 09:18 | NUR ---
PT AWAKE AND ORIENTED, UP TO SHOWER UNASSISTED. CAIN CHAGNED. CONSENTS SIGNED FOR HEART CATH. FIANCE AT BEDSIDE. NO COMPLAINTS OR CONCERNS THIS MORNING. CL IN REACH,SRX1
--- NOTE | 2020-11-28 10:22 | NUR ---
PT AWAKE AND ORIENTED, ESCORTED OT PLASTIC PARTS FABRICATOR TRIMMER VIA BED.
[2020-11-28 11:25] VITALS: BP 132/78
[2020-11-28 12:08] VITALS: BP 132/80
--- NOTE | 2020-11-28 12:31 | NUR ---
I have reviewed this patient and I concur with the Shift Assessment completed by the Licensed Practical Nurse today this shift.
[2020-11-28 12:55] LABS: CKMB 0.9 U/L (0.0-3.6); CREATINE KINASE 87 UL (21-232); TROPONIN-I < 0.017 ng/mL (0.000-0.060)
--- NOTE | 2020-11-28 14:02 | NUR ---
PT AWAKE AND ORIENTED, ESCSROTED OUT VIA WHEELCHAIR TO BUS. IV OUT TIP INTACT.
--- NOTE | 2020-11-28 16:00 | CN ---
PATIENT NAME:JULES GATICA MEDICAL RECORD: [id number] : 68 LOCATION:[facility] D.2117 ADMIT DATE: 11/27/20 ACCOUNT: [id number] CONSULTING PHYSICIAN: DAJA ZALDIVAR MD REFERRING PHYSICIAN: DAJA GROSSMAN MD DATE OF CONSULTATION: 11/28/2020 HISTORY OF PRESENT ILLNESS: A 50-year-old gentleman with a history of a cardiomyopathy as well as ongoing alcohol abuse, admitted with chest pain, ongoing over the past 3 to 4 weeks, also with dyspnea on exertion. Has a history of hypertension, hyperlipidemia, noncompliance, has been an issue in the past. Some symptomatology may have a pleuritic component. Strong family history of coronary artery disease. We are asked to see him concerning cardiovascular status. PAST MEDICAL HISTORY: Includes; 1. History of hypertension. 2. Hyperlipidemia. 3. Cardiomyopathy. ALLERGIES: IODINE. SOCIAL HISTORY: Smokes about half pack a day, drinks in excess intermittently. No illicit drug use. REVIEW OF SYSTEMS: The patient reports easy bruising but reports no swollen glands. The patient reports no fever, no night sweats, no significant weight gain, no significant weight loss. No significant exercise tolerance. The patient reports no dry eyes, no irritation, no vision change. Patient reports no difficulty hearing and no ear pain. Patient reports no frequent nose bleeds or nose and sinus problems. Patient reports on arm pain on exertion. No shortness of breath while lying down. No history of heart murmur. Patient reports no cough, no wheezing or coughing up blood. Patient reports no abdominal pain, no vomiting. Normal appetite. No diarrhea and not vomiting blood. No nausea and no constipation. Patient reports no incontinence. No difficulty urinating. No hematuria. No increased frequency. Patient reports no muscle aches. No weakness, no arthralgias, no back pain. No swelling of the extremities. Patient reports no abnormal mole, no jaundice, no rashes. Reports no loss of consciousness. No weakness and no numbness. No seizures, dizziness, or headaches. The patient reports no depression, no sleep disturbance, feeling safe in a relationship and no alcohol abuse. Patient reports on fatigue. Reports no runny nose or sinus pressure. No itching, no hives, and no frequent sneezing. PHYSICAL EXAMINATION: GENERAL: Appears stated age, in no acute distress. VITAL SIGNS: Blood pressure 116/66, pulse 71 and regular. HEENT: Normocephalic, atraumatic. NECK: No JVD or bruit. HEART: Regular. Questionable S3 gallop. LUNGS: Few expiratory wheezes, prolonged expiratory phase. ABDOMEN: Soft and nontender. EXTREMITIES: Pulses 2+. No edema. IMPRESSION: Acute coronary syndrome, although this may be volume overload CONSULT REPORT [id number] JULES GATICA secondary to noncompliance with myopathic medications. PLAN: For angiography, intervention based on the above. TRANSINT:[id number] Voice Confirmation ID: [id number] DOCUMENT ID: [id number] DAJA ZALDIVAR MD at 1600 CC: [id number] DICTATION DATE: 11/28/20 1042 PARACHUTE/COMBATANT DIVER OFFICER: 11/28/20 1311 DIS IN 11/28/20 [id number] [place] [address]
--- NOTE | 2020-11-28 16:01 | OP ---
PATIENT NAME: JLUES GATICA MEDICAL RECORD: [id number] :68 LOCATION:D.M2 D.7 ADMISSION DATE:11/27/20 SURGEON: DAJA ZALDIVAR MD DATE OF OPERATION: 11/28/2020 PROCEDURE: Left heart catheterization, selective coronary angiography, right femoral artery approach. CATHETERS: A 5-Syriac sheath, 5/4 left and right Kelvin, 5/4 pig. The procedure was well tolerated. The patient returned to the pablo. Sheath removed. ExoSeal device was placed. FINDINGS: Left ventriculography shows anteroapical, apical, and inferoapical hypokinesis. LV function is mildly reduced at 40% to 45%. CORONARY ANATOMY: Left main: Left main is free of disease. LAD: Free of disease in the diagonal system. Circumflex: Free of disease in the marginal system. Right coronary artery: Dominant artery, gives rise to PDA, free of disease. IMPRESSION: Nonischemic cardiomyopathy. We will add carvedilol to his medical regime. He has had issues with compliance in the past. I reiterated compliance versus worsening of LV function over time. TRANSINT:[id number] Voice Confirmation ID: [id number] DOCUMENT ID: [id number] DAJA ZALDIVAR MD at 1601 CC: [id number] DICTATION DATE: 11/28/20 1103 DINKEY DISPATCHER: 11/28/20 1520 DIS IN 11/28/20 [facility] [address] [id number]
== END 2020-11-28 14:03 | disposition home or self-care (01) ==
LOC: D.ER 17:00 → D.M2 18:38 → OBSVTIME 19:30 → D.M2 11-28 14:03
PROVIDERS: Family Medicine; ADMIT Family Medicine; ATTEND Family Medicine
DX: I42.8 Other cardiomyopathies (principal); R07.9 Chest pain, unspecified; K21.9 Gastro-esophageal reflux disease without esophagitis; I50.9 Heart failure, unspecified; F10.20 Alcohol dependence, uncomplicated

== ENCOUNTER 2021-02-20 17:28 | Emergency (ER) | payer MEDICARE, MEDICAID ==
[~2021-02-20] VITALS: Ht 157.5 cm; Wt 75.0 kg
[2021-02-20 17:30] VITALS: Ht 157.5 cm; Wt 75.0 kg
[2021-02-20] MEDS ORDERED: HYDROCODON-ACE1 EA10 PO (21:31)
[2021-02-21 01:16] VITALS: BP 107/70
== END 2021-02-21 01:16 | disposition home or self-care (01) ==
LOC: D.ER 17:28
DX: S22.41XA Multiple fractures of ribs, right side, initial encounter for closed fracture (principal); Y04.2XXA Assault by strike against or bumped into by another person, initial encounter; Y93.9 Activity, unspecified; Y92.9 Unspecified place or not applicable; I50.9 Heart failure, unspecified; J44.9 Chronic obstructive pulmonary disease, unspecified; K21.9 Gastro-esophageal reflux disease without esophagitis